=== PATIENT | male | born 1950 | race Caucasian/White ===

== ENCOUNTER 2017-05-08 16:01 | Inpatient (IN) | payer MEDICARE, MEDICAID ==
[~2017-05-08] VITALS: Ht 177.8 cm; Wt 108.9 kg
--- NOTE | 2017-05-08 16:34 | NUR ---
pt rec'd to er [facility] . friends called [id number] pt couldnt get up out of bathrrom very dizzy . this has happened befiore pt stated oriented x2 . stted taking beer with xanax 2 mg po and norco 325 cant remembe rhow many . very dirty . iv strted 18 left ac labs drawn sent to lab./ pt use to use herioin just drinks now pt fell aleeep on monitor or2 sats 84 ra n/c 3l AWAITING EVALUATION BY ER PROVIDER.
--- NOTE | 2017-05-08 16:39 | NUR ---
chest xray done
[2017-05-08] MEDS ORDERED: FENTANYL PF 100MCG/2ML AMPUL IV ONE (17:00)
[2017-05-08] MEDS ORDERED: MIDAZOLAM HCL 2 MG/2ML VIAL IV ONE ×2 (17:00→20:30)
[2017-05-08] MEDS ORDERED: MIDAZOLAM 50 MG/10 ML VIAL ONE (17:16)
[2017-05-08] MEDS ORDERED: FENTANYL PF 100MCG/2ML AMPUL ONE (17:16)
--- NOTE | 2017-05-08 17:41 | NUR ---
DR MEDELLIN ON THE PHONE WITH [facility]
--- NOTE | 2017-05-08 17:47 | NUR ---
CALLED [facility] FOR ABDUCTION PILLOW
[2017-05-08 18:02] LABS: BASOPHILS % (AUTO) 0.2 % (0.0-2.0); EOSINOPHILS # (AUTO) 0.2 /CMM (0.0-0.7); EOSINOPHILS % (AUTO) 1.3 % (0.0-6.0); HEMATOCRIT 40 % (39-51); HEMOGLOBIN 14.1 g/dL (13.5-17.5); LYMPHOCYTES % (AUTO) 7.3 % (20.0-44.0); MEAN CORPUSCULAR HEMOGLOBIN 33 PG (26.0-33.0); MEAN CORPUSCULAR HGB CONC 35 g/dl (31.0-36.0); MEAN CORPUSCULAR VOLUME 93 fL (80-96); MONOCYTES # (AUTO) 1.1 /CMM (0.1-1.30); MONOCYTES % (AUTO) 8.4 % (2.0-12.0); NEUTROPHILS # (AUTO) 11.2 /CMM (1.8-8.9); NEUTROPHILS % (AUTO) 82.8 % (43.0-81.0); PLATELET COUNT (AUTO) 111 /CMM (150-450); RDW COEFFICIENT OF VARIATION 12.4 (11.5-15.0); RED BLOOD CELL COUNT(AUTO) 4.33 MIL/uL (4.5-6.0); WHITE BLOOD COUNT (AUTO) 13.5 K/uL (4.3-11.0)
--- NOTE | 2017-05-08 18:08 | NUR ---
let hp xray done pt sleepy vss
--- NOTE | 2017-05-08 18:10 | NUR ---
PAGED EPIC FOR PANEL
[2017-05-08 18:14] LABS: CARBON DIOXIDE 31 mmol/L (21-32); CHLORIDE 105 mmol/L (98-107); CREATININE 0.9 mg/dL (0.6-1.3); GLUCOSE 110 mg/dL (74-106); POTASSIUM 3.6 mmol/L (3.5-5.1); SODIUM SERUM 139 mmol/L (136-145); UREA NITROGEN, BLOOD 22 mg/dL (7-18)
[2017-05-08 18:19] LABS: INR 0.88 (0.85-1.15)
[2017-05-08 18:20] LABS: ALANINE AMINOTRANSFERASE 75 U/L (12-78); ALBUMIN 3.4 g/dL (3.4-5.0); ALKALINE PHOSPHATASE 126 U/L (46-116); ASPARTATE AMINOTRANSFERASE 54 U/L (15-37); BILIRUBIN,DIRECT 0.2 mg/dL (0.0-0.2); BILIRUBIN,TOTAL 0.4 mg/dL (0.2-1.0)
--- NOTE | 2017-05-08 18:21 | NUR ---
abd pillow and long leg inmobilizer to left leg
[2017-05-08 18:22] LABS: TROPONIN I < 0.017 ng/mL (0.00-0.056)
[2017-05-08] MEDS ORDERED: ZOLPIDEM TARTRATE 5 MG TABLET PO PRN (18:30)
[2017-05-08] MEDS ORDERED: HYDROCODONE/APAP 5/325MG 1 EACH TABLET PO PRN (18:30)
[2017-05-08] MEDS ORDERED: ONDANSETRON HCL/PF 4 MG/2 ML VIAL IVP PRN (18:30)
[2017-05-08] MEDS ORDERED: Z GUARD REMEDY 2 OZ OINT TP PRN (18:30)
[2017-05-08] MEDS ORDERED: MAG HYDROX/AL HYDROX/SIMETH 30 ML UDC PO PRN (18:30)
[2017-05-08] MEDS ORDERED: LORAZEPAM 1 MG TABLET PO PRN (18:30)
[2017-05-08] MEDS ORDERED: ACETAMINOPHEN 325 MG TABLET PO PRN (18:30)
[2017-05-08] MEDS ORDERED: MAGNESIUM HYDROXIDE 30 ML UDC PO PRN (18:30)
--- NOTE | 2017-05-08 18:49 | NUR ---
CALLED NURSE SUP FOR BED
--- NOTE | 2017-05-08 19:37 | NUR ---
REPORT CALLED TO M/S TRISHA ALBERT. WILL TRANSPORT PT TO ROOM 204-1.
[2017-05-08 19:43] LABS: BAND % (MANUAL) 3 % (0.0-5.0); EOSINOPHILS % (MANUAL) 1 % (0-4); LYMPHOCYTES % (MANUAL) 10 % (16-48); MONOCYTES % (MANUAL) 11 % (0-11.0); NEUTROPHILS % (MANUAL) 75 (42-76)
--- NOTE | 2017-05-08 20:00 | NUR ---
MS RN NOTES RECEIVED REPORT FROM ER NURSE ED.PATIENT WAS BROUGHT UP TO THE UNIT ON A GURNEY. SLEEPING, EASILY AROUSED WITH VERBAL STIMULI. ORIENTED X3 -4. ON 2 L OF O2 VIA NASAL CANNULA. NO APPARENT DISTRESS OR DISCOMFORT NOTED AT THIS TIME. DENIES PAIN. LEFT AC HL #18, PATENT AND INTACT, FLASHED WITH NS. PATIENT WITH ABDUCTOR PILLOW AND LLE IMMOBILIZER. PATIENT WAS MADE COMFORTABLE IN BED. BELONGINGS AND VALUABLES IN PLACE PER INITIAL LIST. SAFETY MEASURES IN PLACE: ID BAND ON, BED IN LOW LOCKED POSITION WITH SIDE RAILS UP x2, CALL LIGHT WITHIN EASY REACH. WILL CONTINUE TO MONITOR.
[2017-05-08] MEDS ORDERED: FENTANYL PF 100MCG/2ML AMPUL IV PRN (20:30)
[2017-05-08 23:00] VITALS: BP 122/68
[2017-05-09] MEDS: MORPHINE SULFATE INJ 2 MG/ML DISP.SYRIN IV PRN ×3 (04:43→12:37)
[2017-05-09 06:49] LABS: EOSINOPHILS # (AUTO) 0.1 /CMM (0.0-0.7); EOSINOPHILS % (AUTO) 0.8 % (0.0-6.0); HEMATOCRIT 36 % (39-51); HEMOGLOBIN 12.8 g/dL (13.5-17.5); LYMPHOCYTES % (AUTO) 7.4 % (20.0-44.0); MEAN CORPUSCULAR HEMOGLOBIN 33 PG (26.0-33.0); MEAN CORPUSCULAR HGB CONC 35 g/dl (31.0-36.0); MEAN CORPUSCULAR VOLUME 94 fL (80-96); MONOCYTES # (AUTO) 0.9 /CMM (0.1-1.30); NEUTROPHILS # (AUTO) 11.5 /CMM (1.8-8.9); NEUTROPHILS % (AUTO) 84.8 % (43.0-81.0); PLATELET COUNT (AUTO) 100 /CMM (150-450); RDW COEFFICIENT OF VARIATION 13.6 (11.5-15.0); RED BLOOD CELL COUNT(AUTO) 3.86 MIL/uL (4.5-6.0); WHITE BLOOD COUNT (AUTO) 13.6 K/uL (4.3-11.0)
[2017-05-09 07:15] LABS: CALCIUM, SERUM 8.7 mg/dL (8.5-10.1); CREATININE 0.7 mg/dL (0.6-1.3); MAGNESIUM 1.6 mg/dL (1.8-2.4); PHOSPHORUS 2.4 mg/dL (2.5-4.9); POTASSIUM 4.1 mmol/L (3.5-5.1)
--- NOTE | 2017-05-09 07:17 | NUR ---
MS RN CLOSING NOTES PATIENT AWAKE IN BED, ALERT ORIENTED X3 -4. ON 2 L OF O2 VIA NASAL CANNULA. NO APPARENT DISTRESS OR DISCOMFORT NOTED AT THIS TIME. DENIES PAIN. LEFT AC HL #18, PATENT AND INTACT. PATIENT WITH ABDUCTOR PILLOW AND LLE IMMOBILIZER. PATIENT KEPT CLEAN AND COMFORTABLE IN BED. ALL NEEDS ATTENDED. SAFETY MEASURES IN PLACE: ID BAND ON, BED IN LOW LOCKED POSITION WITH SIDE RAILS UP x2, CALL LIGHT WITHIN EASY REACH. WILL CONTINUE TO MONITOR.
[2017-05-09] MEDS ORDERED: OXYC80TA40 PO (07:27)
[2017-05-09] MEDS ORDERED: HYDR-548 PO (07:27)
[2017-05-09] MEDS ORDERED: CYCL10TA9 PO (07:27)
[2017-05-09] MEDS ORDERED: LISI10TA5 PO (07:27)
--- NOTE | 2017-05-09 07:45 | NUR ---
MS/RN Patient received Patient received from welder 2nd shift. All needs attended, remains with abduction pillow to prevent hip from further dislocating. Left foot warm to touch with full sensation. Call light within [facility], will continue to monitor and ensure safety.
[2017-05-09 08:00] VITALS: BP 129/50
[2017-05-09] MEDS ORDERED: GLIP5TAB13 PO (08:43)
[2017-05-09] MEDS ORDERED: TRAZ-147 PO (08:43)
[2017-05-09] MEDS ORDERED: ATOR20TA PO (08:43)
[2017-05-09] MEDS ORDERED: OXYC80TA PO (08:43)
[2017-05-09] MEDS ORDERED: TAMS0.4C34 PO (08:43)
[2017-05-09] MEDS ORDERED: METF500T4 PO (08:43)
[2017-05-09] MEDS ORDERED: PANT40TA4 PO (08:43)
[2017-05-09] MEDS ORDERED: ALPR2TAB7 PO (08:43)
--- NOTE | 2017-05-09 08:45 | NUR ---
MS/RN Pain medication Complaining of pain to left hip 11/04, medication administered as ordered. Will monitor effectiveness.
--- NOTE | 2017-05-09 10:14 | NUR ---
MS/RN S/B Dr Avalos Seen by Dr Avalos - labs ordered for tomorrow.
--- NOTE | 2017-05-09 11:58 | NUR ---
MS/RN Home medications Dr Avalos contacted to reconcile home medications.
--- NOTE | 2017-05-09 12:22 | NUR ---
Social service consult requested by Dr. Resendiz for readmission score of 11 and pt. from sober living. SW referred pt. to registered nurse hh case manager Odilia Pierre for placement.
[2017-05-09] MEDS: Magnesium 1GM/D5W 100ML PREMIX 100 ML IV SCH ×2 (12:45→13:45)
--- NOTE | 2017-05-09 13:07 | NUR ---
MS/RN Refused magnesium Patient refusing magnesium replacement, stated that if he can't get his home medication then he doesn't want anything else. Will inform MD.
--- NOTE | 2017-05-09 15:36 | NUR ---
MS/RN S/B Ortho Seen by ortho - patient remains non compliant, stable from ortho stand point. Follow up with Dr Nance at [facility].
[2017-05-09 16:00] VITALS: BP 125/74
[2017-05-09] MEDS ORDERED: HYDROMORPHONE INJ 0.5 MG/0.5 ML SYRINGE IV PRN (16:30)
[2017-05-09] MEDS ORDERED: K PHOS NEUTRAL 250 MG TABLET PO ONE (18:00)
--- NOTE | 2017-05-09 18:23 | NUR ---
MS/RN End note Patient refusing all oral medications until Dr Avalos has entered home medications, patient continues to state that he is in pain and needs his regular medications. Patient also appears to be withdrawing from alcohol. Hip precautions reinforced, stated that he was aware. Safety measures in place, call light within reach, will continue to monitor and endorse to screener operator.
--- NOTE | 2017-05-09 19:15 | NUR ---
RN NOTES RECEIVED PT OUT OF BED, WALKING WITH FWW, VERY UPSET AND AGITATED BECAUSE HIS MEDICATIONS WERE NOT ORDERED YET BY THE DOCTOR. THE PT EVEN THROW THE FWW TO HIS FRUSTRATION. SPOKE TO THE PT AND CALM HIM DOWN, TOLD HIM WILL CALL THE DOCTOR RIGHT NOW TO GET THE ORDER. ASSISTED PT BACK TO BED, AND WILL UPDATE WITH HIS MEDICATIONS.
[2017-05-09 20:00] VITALS: BP 137/72
[2017-05-09] MEDS ORDERED: LORAZEPAM 1 MG TABLET PO PRN (21:00)
[2017-05-09] MEDS ORDERED: OXYCODONE HCL 80 MG PO SCH (21:00)
[2017-05-09] MEDS: ALPRAZOLAM 1 MG TABLET PO SCH (21:27)
[2017-05-09] MEDS ORDERED: OXYCODONE HCL 80 MG PO ONE (21:51)
[2017-05-09] MEDS ORDERED: TAMSULOSIN 0.4 MG CAP.SR.24H PO SCH (22:00)
[2017-05-09] MEDS ORDERED: TRAZODONE 50 MG TABLET PO SCH (22:00)
[2017-05-09] MEDS ORDERED: TEMAZEPAM 15 MG CAPSULE PO PRN (22:00)
--- NOTE | 2017-05-09 22:00 | NUR ---
RN NOTES TRAZADONE 400MG PUT ON HOLD BECAUSE PT IS SO SLEEPY WITH XANAX AND OXYCODONE. WILL CONTINUE TO MONITOR PT.
--- NOTE | 2017-05-09 22:00 | NUR ---
RN NOTES FLOMAX 0.4 MG TAB TO BE GIVEN IN AM, PER PT HE'S TAKING IT IN THE MORNING.
[2017-05-10 02:00] VITALS: BP 137/72
[2017-05-10 07:00] LABS: CALCIUM, SERUM 9.1 mg/dL (8.5-10.1); CREATININE 0.7 mg/dL (0.6-1.3); MAGNESIUM 1.6 mg/dL (1.8-2.4); POTASSIUM 4.4 mmol/L (3.5-5.1)
[2017-05-10] MEDS ORDERED: PANTOPRAZOLE 40 MG TABLET.DR PO SCH (07:30)
--- NOTE | 2017-05-10 07:35 | NUR ---
RN NOTES PT REFUSING FOR ABDUCTOR PILLOW ON WHILE IN BED AND CAN WALK WITH OUT FWW WITHOUT PAIN. VERBALIZING WANTING TO BE DISCHARGE HOME. NO SIGNIFICANT CHANGE IN CONDITION NOTED. PAIN CONTROLLED. ENDORSED TO MORNING RN FOR CONTINUITY OF CARE.
--- NOTE | 2017-05-10 07:45 | NUR ---
MS/RN Patient received Patient received from retail shift supervisor. Unhappy about care received by MD, stating that he had no right to withhold his medications from him. Expressed that he would be leaving today, and would arrange his own rehab. Safety measures in placed, attempted to reinforce hip precautions, but refusing to listen. Will continue to monitor and ensure safety.
[2017-05-10 08:00] VITALS: BP 127/88
[2017-05-10] MEDS: CYCLOBENZAPRINE 10 MG TABLET PO SCH ×2 (08:17→12:11)
[2017-05-10 08:18] VITALS: BP 127/88
[2017-05-10] MEDS: oxyCODONE HCL SR 40MG TAB.SR.12H PO SCH ×2 (08:56→12:12)
[2017-05-10] MEDS ORDERED: glipiZIDE 5 MG TABLET PO SCH (09:00)
[2017-05-10] MEDS: ALPRAZOLAM 1 MG TABLET PO SCH ×2 (09:00→12:12)
[2017-05-10] MEDS ORDERED: METFORMIN 500 MG TABLET PO SCH (09:00)
[2017-05-10] MEDS ORDERED: LISINOPRIL (10MG) 10 MG TABLET PO SCH (09:00)
--- NOTE | 2017-05-10 09:00 | NUR ---
MS/RN Medications All medications administered as ordered, but patient refusing xanax.
--- NOTE | 2017-05-10 09:10 | NUR ---
MS/RN Heplock Heplock pulled out, refusing reinsertion.
[2017-05-10] MEDS: Magnesium 1GM/D5W 100ML PREMIX 100 ML IV SCH ×2 (11:12→12:12)
--- NOTE | 2017-05-10 13:44 | NUR ---
MS/sales service route manager review Seen by case management coordinator - patient again stating wish to be discharged to home today and not to rehab. Stated that he has all equipment needed at home from previous surgery.
--- NOTE | 2017-05-10 16:00 | NUR ---
MS/RN S/B Michael Aabd Seen by Michael Abad - patient to be discharged to home today and follow up with ortho. No prescriptions needed.
--- NOTE | 2017-05-10 17:05 | NUR ---
MS/oracle application architect Patient discharged to home in stable condition. All personal belongings signed for on personal property list. Education provided to patient regarding the importance of following up with ortho MD at , also concerning hip precautions, patient stated understanding of both. Escorted to main lobby by INFORMATION SECURITY, son providing transport. Both heplock and name bands already removed.
[2017-05-10] MEDS ORDERED: ATORVASTATIN 10 MG TABLET PO SCH (22:00)
== END 2017-05-10 17:14 | disposition home or self-care (01) | DRG 537 ==
LOC: ER 16:03 → MEDSG2 19:39
PROVIDERS: ADMIT Internal Medicine; ATTEND Internal Medicine
PROC: 0SSBXZZ Reposition Left Hip Joint, External Approach (ICD-10-PCS; principal; 2017-05-08)
DX: S73.005A Unspecified dislocation of left hip, initial encounter (principal); R65.10 Systemic inflammatory response syndrome (SIRS) of non-infectious origin without acute organ dysfunction; J44.9 Chronic obstructive pulmonary disease, unspecified; E83.42 Hypomagnesemia; E11.9 Type 2 diabetes mellitus without complications; I10 Essential (primary) hypertension; W18.30XA Fall on same level, unspecified, initial encounter; Y92.009 Unspecified place in unspecified non-institutional (private) residence as the place of occurrence of the external cause; Y92.003 Bedroom of unspecified non-institutional (private) residence as the place of occurrence of the external cause; F10.10 Alcohol abuse, uncomplicated; Y90.9 Presence of alcohol in blood, level not specified; F41.9 Anxiety disorder, unspecified; F32.9 Major depressive disorder, single episode, unspecified; E66.9 Obesity, unspecified; Z68.34 Body mass index [BMI] 34.0-34.9, adult; Z79.4 Long term (current) use of insulin; Z79.899 Other long term (current) drug therapy; F17.200 Nicotine dependence, unspecified, uncomplicated
CPT/HCPCS: 36415; 71045-TC; 72170-TC; 73502; 80048-TC; 80076-TC; 83735-TC; 84100-TC; 84484-TC; 85025-TC; 85730-TC; 87081-TC; A4606; J2250; J2270; J3010; Z7610

== ENCOUNTER 2020-06-01 12:16 | Inpatient (IN) | payer MEDICARE, OTHER ==
[~2020-06-01] VITALS: Ht 177.8 cm; Wt 85.7 kg
[~2020-06-01 12:16] MED LIST: ALPR2TAB7 PO; ATOR20TA PO; CYCL10TA9 PO; GLIP5TAB13 PO; HYDR-4354 PO; LISI10TA29 PO; METF-440 PO; OXYC80TA PO; PANT40TA49 PO; TAMS0.4C34 PO; TRAZ-257 PO
--- NOTE | 2020-06-01 12:16 | NUR ---
PT [id number] GLF LEFT LEG "GIVES IN" & FELL PER EMS REPORT, -KO. PT IS AAOX4, NOT IN RESPIRATORY DISTRESS, HOOKED TO STEREO COMPILER, KEPT RESTED AND COMFORTABLE. WILL CONTINUE TO MONITOR.
--- NOTE | 2020-06-01 12:27 | NUR ---
SEEN AND EXAMINED BY .
[2020-06-01] MEDS ORDERED: ONDANSETRON HCL/PF 4 MG/2 ML VIAL IVP ONE (12:30)
[2020-06-01] MEDS ORDERED: MORPHINE SULFATE INJ 2 MG/ML DISP.SYRIN IV ONE (12:30)
[2020-06-01] MEDS ORDERED: MORPHINE SULFATE INJ 4 MG/ML DISP.SYRIN ONE (12:33)
[2020-06-01] MEDS ORDERED: ONDANSETRON HCL/PF 4 MG/2 ML VIAL ONE (12:33)
--- NOTE | 2020-06-01 12:35 | NUR ---
IV LINE ESTABLISHED BLOOD DRAWN AND SENT TO LAB.
[2020-06-01 12:47] LABS: BASOPHILS # (AUTO) 0.1 /CMM (0.0-0.2); BASOPHILS % (AUTO) 0.8 % (0.0-2.0); EOSINOPHILS % (AUTO) 3.6 % (0.0-6.0); HEMATOCRIT 40 % (39-51); HEMOGLOBIN 13.7 g/dL (13.5-17.5); LYMPHOCYTES # (AUTO) 1.6 /CMM (0.8-4.8); LYMPHOCYTES % (AUTO) 23.2 % (20.0-44.0); MEAN CORPUSCULAR HGB CONC 34 g/dl (31.0-36.0); MEAN CORPUSCULAR VOLUME 94 fL (80-96); MONOCYTES # (AUTO) 0.6 /CMM (0.1-1.30); MONOCYTES % (AUTO) 8.7 % (2.0-12.0); NEUTROPHILS # (AUTO) 4.5 /CMM (1.8-8.9); NEUTROPHILS % (AUTO) 63.7 % (43.0-81.0); PLATELET COUNT (AUTO) 84 /CMM (150-450); RED BLOOD CELL COUNT(AUTO) 4.28 MIL/uL (4.5-6.0); WHITE BLOOD COUNT (AUTO) 7.1 K/uL (4.3-11.0)
[2020-06-01 13:02] LABS: CALCIUM, SERUM 8.8 mg/dL (8.5-10.1); CREATININE 1.1 mg/dL (0.6-1.3); POTASSIUM 4.3 mmol/L (3.5-5.1)
--- NOTE | 2020-06-01 13:13 | NUR ---
MANAGER PRODUCT MANAGEMENT AT BEDSIDE FOR XRAY.
[2020-06-01] MEDS ORDERED: FENTANYL PF 100MCG/2ML AMPUL ONE (13:29)
[2020-06-01] MEDS ORDERED: MIDAZOLAM 50 MG/10 ML VIAL ONE (13:30)
[2020-06-01] MEDS ORDERED: FENTANYL PF 100MCG/2ML AMPUL IV ONE (13:30)
[2020-06-01] MEDS ORDERED: INSULIN REGULAR, HUMAN 100 UNIT/ML 10 ML VIAL ONE (13:30)
[2020-06-01] MEDS ORDERED: MIDAZOLAM HCL 2 MG/2ML VIAL IV ONE (13:30)
[2020-06-01] MEDS ORDERED: INSULIN REGULAR, HUMAN 100 UNIT/ML 10 ML VIAL SQ ONE (13:30)
--- NOTE | 2020-06-01 13:48 | NUR ---
DANCE ARTIST AT BEDSIDE FOR HIP XRAY S/P HIP REDUCTION.
--- NOTE | 2020-06-01 14:01 | NUR ---
[facility] PAGED. AWAITING HOSPITALIST CALL BACK.
--- NOTE | 2020-06-01 14:35 | NUR ---
CALLED [facility].
--- NOTE | 2020-06-01 14:36 | NUR ---
NURSING ASSISTANT BOYS TRACK COACH CALLED FOR A M/S BED.
--- NOTE | 2020-06-01 14:48 | NUR ---
GOT BED 308-1
[2020-06-01] MEDS ORDERED: ACETAMINOPHEN 325 MG TABLET PO PRN (15:00)
[2020-06-01] MEDS ORDERED: HYDROCODONE/APAP 10/325MG TABLET PO PRN (15:00)
[2020-06-01] MEDS ORDERED: HYDROCODONE/APAP 5/325MG TABLET PO PRN (15:00)
[2020-06-01] MEDS ORDERED: ONDANSETRON HCL/PF 4 MG/2 ML VIAL IVP PRN (15:00)
[2020-06-01] MEDS ORDERED: MAG HYDROX/AL HYDROX/SIMETH 30 ML UDC PO PRN (15:00)
[2020-06-01] MEDS ORDERED: MAGNESIUM HYDROXIDE 30 ML UDC PO PRN (15:00)
[2020-06-01] MEDS ORDERED: Z GUARD REMEDY 2 OZ OINT TP PRN (15:00)
[2020-06-01] MEDS ORDERED: DEXTROSE 50%-WATER 50 ML DISP.SYRIN IV PRN (15:00)
[2020-06-01] MEDS ORDERED: PROPOFOL 20 ML IV ONE (15:44)
[2020-06-01 15:57] LABS: EOSINOPHILS % (MANUAL) 2 % (0-4); LYMPHOCYTES % (MANUAL) 22 % (16-48); MONOCYTES % (MANUAL) 7 % (0-11.0); NEUTROPHILS % (MANUAL) 69 (42-76)
[2020-06-01] MEDS ORDERED: PROPOFOL 200 MG/20 ML VIAL IV ONE (16:00)
--- NOTE | 2020-06-01 16:00 | NUR ---
REPORT GIVEN TO TRISHA MILLIGAN FOR RAUL.
[2020-06-01] MEDS: MORPHINE SULFATE INJ 2 MG/ML DISP.SYRIN IV PRN (16:47)
[2020-06-01] MEDS: ALPRAZOLAM 1 MG TABLET PO SCH (17:13)
[2020-06-01] MEDS: CYCLOBENZAPRINE 10 MG TABLET PO SCH (17:13)
[2020-06-01] MEDS: BLOOD SUGAR DIAGNOSTIC 1 EACH STRIP VI SCH ×2 (18:28→22:18)
[2020-06-01] MEDS: INSULIN REGULAR, HUMAN 100 UNIT/ML 3 ML VIAL SQ PRN (18:36)
[2020-06-01 20:00] VITALS: BP 169/117
[2020-06-01] MEDS: TAMSULOSIN 0.4 MG CAP.SR.24H PO SCH ×2 (22:00→22:28)
[2020-06-01] MEDS: TRAZODONE 50 MG TABLET PO SCH (22:00)
[2020-06-01] MEDS: ATORVASTATIN 10 MG TABLET PO SCH ×2 (22:00→22:29)
[2020-06-01] MEDS: *INSULIN REGULAR(HUMULIN R)HUM 100 UNIT/ML VIAL SQ PRN (22:28)
[2020-06-01] MEDS: oxyCODONE HCL SR 20MG TAB.SR.12H PO SCH (22:29)
--- NOTE | 2020-06-01 22:29 | NUR ---
oxcontin held pt is arousavble to touch but falling asleep mid conversations. rr is 14. will cont to monito.r
[2020-06-02] MEDS: oxyCODONE HCL SR 20MG TAB.SR.12H PO SCH ×3 (05:00→21:00)
--- NOTE | 2020-06-02 05:15 | NUR ---
held oxcontin again this am held pt is arousable to touch and voice but still exhibits some lethargy. pt groans when moving but when still/still not mvoing, in no apparent distress. pt continues to reposition self. will cont to monitor.
--- NOTE | 2020-06-02 06:14 | NUR ---
pt refused am accucheck. patient refused am labs by shrimp pond laborer. pt upset, states, "why wont you guys fix my hip. you havent done a goddamn thing.All you want is blood this and blood that. fix my hip god damnit!"
[2020-06-02] MEDS: MORPHINE SULFATE INJ 2 MG/ML DISP.SYRIN IV PRN (06:22)
--- NOTE | 2020-06-02 06:50 | NUR ---
RN CLOSING NOTE PT IN BED NO ACUTE DISTRESS NOTED. PT SLEPT 8HRS LAST NIGHT. NARCOTIC MEDICATION HELD D/T PT APPEARING TO FALL ASLEEP DURING CONVERSATIONS. PT STILL COMPLAINING OF SEVERE PAIN TO LEFT HIP AND HIP IS VISIBLY OUT OF ALIGNMENT. PT REFUSED 2200 MEDICATIONS. PT MOVING INDEPENDENTLY IN BED FROM SIDE TO SIDE. ATTITUDE IS ANGRY AND NON COMPLIANT DURING INTERACTION WHILE AWAKE. GIVEN ONE DOSE OF MORPHINE 2MG AROUND 6PM. SAFETY MEASURE IN PLACE, BED DOWN LOCKED SRX3 CALL LIGHT IN REACH. WILL ENDORSE TO ONCOMING SHIFT.
[2020-06-02] MEDS: BLOOD SUGAR DIAGNOSTIC 1 EACH STRIP VI SCH ×4 (07:21→21:41)
[2020-06-02] MEDS: PANTOPRAZOLE 40 MG TABLET.DR PO SCH (07:21)
--- NOTE | 2020-06-02 07:35 | NUR ---
RN OPENING NOTE PT IS RESTING BED. AROUSES TO LIGHT TOUCH. A/O X3 AND ABLE TO COMMUNICATE NEEDS TO NURSES. NO CURRENT COMPLAINT OF PAIN. NO NAUSEA. CURRENTLY ON RA. NO SOB OR RESPIRATORY DISTRESS PRESENT. V/S STABLE. CURRENTLY ON BEDREST. L HIP DISLOCATION PRESENT. HL PRESENT ON R FA, 22G AND FLUSHES WELL. SAFETY MEASURES IN PLACE. SIDE RAILS RAISED, BED LOWERED, CALL LIGHT WITHIN REACH. WILL CONTINUE TO MONITOR.
[2020-06-02] MEDS: CYCLOBENZAPRINE 10 MG TABLET PO SCH ×3 (09:00→17:00)
[2020-06-02] MEDS: ALPRAZOLAM 1 MG TABLET PO SCH ×3 (09:00→17:04)
[2020-06-02] MEDS: LISINOPRIL (10MG) 10 MG TABLET PO SCH (09:00)
[2020-06-02] MEDS: HYDROMORPHONE INJ 2 MG/ML DISP.SYRIN IV PRN ×3 (09:08→15:25)
[2020-06-02 09:25] LABS: BASOPHILS % (AUTO) 0.6 % (0.0-2.0); HEMATOCRIT 43 % (39-51); HEMOGLOBIN 14.5 g/dL (13.5-17.5); LYMPHOCYTES # (AUTO) 1.6 /CMM (0.8-4.8); LYMPHOCYTES % (AUTO) 25.5 % (20.0-44.0); MEAN CORPUSCULAR HGB CONC 34 g/dl (31.0-36.0); MEAN CORPUSCULAR VOLUME 94 fL (80-96); MONOCYTES # (AUTO) 0.5 /CMM (0.1-1.30); MONOCYTES % (AUTO) 8.4 % (2.0-12.0); NEUTROPHILS # (AUTO) 3.9 /CMM (1.8-8.9); NEUTROPHILS % (AUTO) 62.5 % (43.0-81.0); PLATELET COUNT (AUTO) 82 /CMM (150-450); RED BLOOD CELL COUNT(AUTO) 4.54 MIL/uL (4.5-6.0); WHITE BLOOD COUNT (AUTO) 6.3 K/uL (4.3-11.0)
[2020-06-02 09:26] VITALS: BP 148/90
[2020-06-02 09:51] LABS: CALCIUM, SERUM 8.9 mg/dL (8.5-10.1); CREATININE 0.7 mg/dL (0.6-1.3); MAGNESIUM 1.8 mg/dL (1.8-2.4); PHOSPHORUS 3.2 mg/dL (2.5-4.9); POTASSIUM 4.2 mmol/L (3.5-5.1)
[2020-06-02] MEDS ORDERED: DESFLURANE 240 ML BOTTLE IH ONE (11:36)
[2020-06-02] MEDS ORDERED: SEVOFLURANE 250 ML BOTTLE IH ONE (12:10)
[2020-06-02] MEDS ORDERED: SUCCINYLCHOLINE CHLORIDE 20 MG/ML VIAL ONE (13:15)
[2020-06-02] MEDS ORDERED: ANESTHESIA TRAY IN PYXIS 1 EA TRAY MC ONE (13:21)
--- NOTE | 2020-06-02 13:50 | NUR ---
SS CONSULT FOLLOW UP: Per RN, Vinny hanley is in surgery and unable to meet for an assessment at this time. RN will follow up with SS when the patient is alert and able to complete an assessment.
[2020-06-02] MEDS ORDERED: FENTANYL PF 100MCG/2ML AMPUL ONE (14:01)
[2020-06-02] MEDS ORDERED: HYDROMORPHONE 1 MG/1 ML DISP.SYRIN ONE (14:38)
[2020-06-02 15:00] VITALS: BP 166/83
--- NOTE | 2020-06-02 15:01 | NUR ---
RN POST OP NOTE CLOSED REDUCTION OF LEFT HIP FRACTURE UNSUCCESSFUL. RESUME PRE OP ORDERS INDICATED. ADVANCE DIET TOLERATED. BP 166/83, O2 SAT 99% ON 2L NC, 99 OK, 98.6F TEMPERATURE. WILL CONTINUE TO MONITOR.
[2020-06-02] MEDS: INSULIN REGULAR, HUMAN 100 UNIT/ML 3 ML VIAL SQ PRN (17:36)
--- NOTE | 2020-06-02 18:00 | NUR ---
FINAL ASSEMBLY AND PACKING SUPERVISOR NOTE HELD FLEXERIL DUE TO PT CONDITION. AROUSABLE ONLY TO DEEP PAIN.
--- NOTE | 2020-06-02 18:08 | NUR ---
RN NOTE PT HAS HIP OPERATIONS DONE AT [facility]. UNABLE TO OBTAIN NAME OF ORIGINAL SURGEON. WILL ENDORSE TO NIGHT NURSE.
--- NOTE | 2020-06-02 18:11 | NUR ---
RN CLOSING NOTE PT IS RESTING IN BED AWAKE. A/O X 3 AND ABLE TO COMMUNICATE NEEDS TO NURSES. NO COMPLAINT OF PAIN. NO NAUSEA. CURRENTLY ON RA. NO SOB OR RESPIRATORY DISTRESS PRESENT. CURRENTLY ON BEDREST DUE TO HIP DISLOCATION. ABLE TO USE URINAL/BEDPAN. SKIN IS INTACT. HL PRESENT ON R AC, 18 G AND FLUSHES WELL. ROUTINE MEDS GIVEN. SAFETY MEASURES IN PLACE. SIDE RAILS UP. BED LOWERED. CALL LIGHT WITHIN REACH. REPORT TO BE GIVEN TO NIGHT NURSE FOR RAUL.
[2020-06-02 20:00] VITALS: BP 107/68
[2020-06-02] MEDS: TRAZODONE 50 MG TABLET PO SCH (21:41)
[2020-06-02] MEDS: TAMSULOSIN 0.4 MG CAP.SR.24H PO SCH (21:41)
[2020-06-02] MEDS: ATORVASTATIN 10 MG TABLET PO SCH (21:41)
--- NOTE | 2020-06-02 21:42 | NUR ---
PATIENT REFUSED SCHEDULED MEDICATIONS. STATES, "I DON'T WANT ANY OF THAT STUFF, I WANT THEM TO FIX MY [place] HIP. STATES A DR. NATHAN DID HIS HIP SURGERY AT [facility]. PATIENT REPORTS PAIN TO LEFT HIP 10/10 BUT DURING CONVERSATION PATIENT APPEARED TO FALL BACK ASLEEP WITH EYES CLOSED AND SOFT SNORING. RR IS 18 PT AROUSABLE TO VOICE BUT SOMEWHAT LETHARGIC WILL HOLD OFF ON ADMINISTERING NARCOTICS UNTIL PATIENT MORE ALERT WILL CONT TO MONITOR.
[2020-06-03] MEDS: HYDROMORPHONE INJ 2 MG/ML DISP.SYRIN IV PRN ×4 (01:41→17:27)
[2020-06-03] MEDS: oxyCODONE HCL SR 20MG TAB.SR.12H PO SCH ×3 (05:00→22:02)
--- NOTE | 2020-06-03 06:30 | NUR ---
patient refused am lab draw. per pathology lab technician.
[2020-06-03] MEDS: INSULIN REGULAR, HUMAN 100 UNIT/ML 3 ML VIAL SQ PRN ×3 (07:12→17:31)
[2020-06-03] MEDS: BLOOD SUGAR DIAGNOSTIC 1 EACH STRIP VI SCH ×4 (07:18→22:04)
--- NOTE | 2020-06-03 07:41 | NUR ---
MS/RN OPENING NOTES RECEIVED PATIENT ON BED AWAKE ALERT AND ORIENTED X3. PATIENT IS ON ROOM AIR SATURATING WELL. PATIENT IN NO APPARENT RESPIRATORY DISTRESS NOTED. NO COMPLAINED OF PAIN NOTED AT THIS TIME. WILL CONTINUE TO MONITOR.
[2020-06-03 08:00] VITALS: BP 90/62
[2020-06-03] MEDS: CYCLOBENZAPRINE 10 MG TABLET PO SCH ×3 (08:14→17:27)
[2020-06-03] MEDS: ALPRAZOLAM 1 MG TABLET PO SCH ×3 (08:14→17:00)
[2020-06-03] MEDS: PANTOPRAZOLE 40 MG TABLET.DR PO SCH (08:14)
[2020-06-03] MEDS: LISINOPRIL (10MG) 10 MG TABLET PO SCH (09:00)
[2020-06-03 11:04] LABS: BASOPHILS # (AUTO) 0.1 /CMM (0.0-0.2); BASOPHILS % (AUTO) 0.3 % (0.0-2.0); EOSINOPHILS % (AUTO) 0.5 % (0.0-6.0); HEMATOCRIT 41 % (39-51); LYMPHOCYTES # (AUTO) 1.8 /CMM (0.8-4.8); LYMPHOCYTES % (AUTO) 10.7 % (20.0-44.0); MEAN CORPUSCULAR HGB CONC 34 g/dl (31.0-36.0); MEAN CORPUSCULAR VOLUME 93 fL (80-96); MONOCYTES # (AUTO) 1.4 /CMM (0.1-1.30); MONOCYTES % (AUTO) 8.2 % (2.0-12.0); NEUTROPHILS # (AUTO) 13.6 /CMM (1.8-8.9); NEUTROPHILS % (AUTO) 80.3 % (43.0-81.0); PLATELET COUNT (AUTO) 94 /CMM (150-450); WHITE BLOOD COUNT (AUTO) 16.9 K/uL (4.3-11.0)
[2020-06-03 11:44] LABS: ALBUMIN 2.5 g/dL (3.4-5.0); BILIRUBIN,TOTAL 0.7 mg/dL (0.2-1.0); CALCIUM, SERUM 8.9 mg/dL (8.5-10.1); CREATININE 0.9 mg/dL (0.6-1.3); PHOSPHORUS 3.6 mg/dL (2.5-4.9)
[2020-06-03 12:10] LABS: POTASSIUM 4.2 mmol/L (3.5-5.1)
[2020-06-03 12:29] LABS: BAND % (MANUAL) 3 % (0.0-5.0); EOSINOPHILS % (MANUAL) 1 % (0-4); LYMPHOCYTES % (MANUAL) 9 % (16-48); MONOCYTES % (MANUAL) 7 % (0-11.0); NEUTROPHILS % (MANUAL) 80 (42-76)
[2020-06-03 13:26] LABS: CHOLESTEROL 129 mg/dL (<200); HDL CHOLESTEROL 53 mg/dL (40-60); LDL 65 mg/dL (0-99); TRIGLYCERIDES 48 mg/dL (30-150)
[2020-06-03 16:00] VITALS: BP 102/69
--- NOTE | 2020-06-03 18:30 | NUR ---
MS/RN CLOSING NOTES PATIENT IS ON BED. ALERT AND ORIENTED X 3. PATIENT IS ON ROOM AIR SATURATION 93%. PATIENT IN NO APPARENT RESPIRATORY DISTRESS NOTED. NO COMPLAINED OF PAIN NOTED AT THIS TIME. SEEN AND EXAMINED BY MD WITH ORDERS MADE AND CARRIED OUT. ALL DUE MEDICATIONS WAS GIVEN. SAFETY PRECAUTIONS WAS IN PLACED. BED IN LOWEST POSITION AND LOCKED. WILL ENDORSED TO EXOTIC DANCER FOR RAUL.
[2020-06-03 20:00] VITALS: BP 125/74
--- NOTE | 2020-06-03 20:08 | NUR ---
RN NOTE PATIENT IN BED RESTING, LETHARGIC. EASILY AROUSED. NO SOB OR ANY RESPIRATORY DISTRESS. ON ROOM AIR, O2 SAT WNL. DENIES ANY PAIN AT THIS TIME. WITH RIGHT AC #18 PATENT AND INTACT. ALL NEEDS ANTICIPATED. SAFETY MEASURES IN PLACE. BED LOCKED AND IN LOWEST POSITION. CALL LIGHT WITHIN REACH. WILL CONTINUE TO MONITOR.
[2020-06-03] MEDS: ATORVASTATIN 10 MG TABLET PO SCH (22:02)
[2020-06-03] MEDS: TAMSULOSIN 0.4 MG CAP.SR.24H PO SCH (22:02)
[2020-06-03] MEDS: TRAZODONE 50 MG TABLET PO SCH (22:04)
[2020-06-03] MEDS: *INSULIN REGULAR(HUMULIN R)HUM 100 UNIT/ML VIAL SQ PRN ×2 (22:09→22:13)
[2020-06-04] MEDS: oxyCODONE HCL SR 20MG TAB.SR.12H PO SCH ×3 (05:00→20:57)
[2020-06-04] MEDS: BLOOD SUGAR DIAGNOSTIC 1 EACH STRIP VI SCH ×4 (06:53→21:19)
[2020-06-04] MEDS: INSULIN REGULAR, HUMAN 100 UNIT/ML 3 ML VIAL SQ PRN ×3 (06:53→17:40)
--- NOTE | 2020-06-04 07:04 | NUR ---
RN NOTE PATIENT IN BED RESTING, LETHARGIC. EASILY AROUSED. NO SOB OR ANY RESPIRATORY DISTRESS. ON ROOM AIR, O2 SAT WNL. WITH RIGHT AC #18 PATENT AND INTACT. OFFERED AM MEDS AND ACCUCHECK X3, RISKS AND BENEFITS EXPLAINED, BUT STILL STRONGLY REFUSED AND ANGRILY SAID "NO". SAFETY MEASURES IN PLACE. BED LOCKED AND IN LOWEST POSITION. CALL LIGHT WITHIN REACH. WILL ENDORSE TO ONCOMING SHIFT.
--- NOTE | 2020-06-04 07:25 | NUR ---
MS RICO OPENING NOTES RECEIVED PATIENT IN BED, SLEEPING. ON ROOM AIR, TOLERATING WELL. NO SOB NOTED. IN NO APPARENT DISTRESS. IV ACCESS ON R AC #18 G, INTACT. SAFETY MEASURES MAINTAINED. BED IN LOWEST POSITION, BRAKES LOCKED. SIDE RAILS UP X2. CALL LIGHT WITHIN REACH. WILL CONTINUE PLAN OF CARE. Addendum: 06/04/20 at 0815 by HEYDI SUAREZ RN ENTERED BY ROBERT BLANCHARDN, RN
[2020-06-04 08:00] VITALS: BP 100/64
[2020-06-04] MEDS: LISINOPRIL (10MG) 10 MG TABLET PO SCH (09:00)
[2020-06-04] MEDS: PANTOPRAZOLE 40 MG TABLET.DR PO SCH (09:05)
[2020-06-04] MEDS: CYCLOBENZAPRINE 10 MG TABLET PO SCH ×3 (09:05→16:59)
[2020-06-04] MEDS: ALPRAZOLAM 1 MG TABLET PO SCH ×3 (09:05→16:59)
[2020-06-04 16:00] VITALS: BP 138/60
--- NOTE | 2020-06-04 18:18 | NUR ---
MS RN CLOSING NOTES PATIENT RESTING IN BED, LETHARGIC. ON ROOM AIR, TOLERATING WELL. NO SOB NOTED. NO S/S OF RESPIRATORY DISTRESS. IV ACCESS ON R AC #18 G, INTACT AND PATENT. ALL NEEDS HAVE BEEN MET. ROUTINE MEDS WERE GIVEN ORDERED. SAFETY MEASURES MAINTAINED. BED IN LOWEST POSITION, BRAKES LOCKED. SIDE RAILS UP X2. CALL LIGHT WITHIN REACH. WILL ENDORSE TO TELETYPEWRITER INSTALLER FOR CONTINUITY OF CARE.
--- NOTE | 2020-06-04 19:35 | NUR ---
RN opening notes Pt is resting in bed comfortably. Pt is alert and orientedX3, lethargic and easily arousable. Respiration is normal in room air. No SOB. No S/S of distress noted. IV site at RAc# 18 is clean, intact, flushes well and SL. Safety precautions is maintained. Bed at low position, brakes locked, side rails upX2, urinal at the bed side and call light is within reach. Will continue to monitor.
[2020-06-04 20:00] VITALS: BP 124/84
[2020-06-04] MEDS: TRAZODONE 50 MG TABLET PO SCH (21:02)
--- NOTE | 2020-06-04 21:02 | NUR ---
RN notes Pt refused desyrel 50 mg/8 tabs/po. Explained risks and benefits. Pt keep refusing. Will continue to monitor.
[2020-06-04] MEDS: TAMSULOSIN 0.4 MG CAP.SR.24H PO SCH (21:14)
[2020-06-04] MEDS: ATORVASTATIN 10 MG TABLET PO SCH (21:15)
[2020-06-04] MEDS: *INSULIN REGULAR(HUMULIN R)HUM 100 UNIT/ML VIAL SQ PRN (21:22)
[2020-06-05 04:38] VITALS: BP 137/92
[2020-06-05] MEDS: oxyCODONE HCL SR 20MG TAB.SR.12H PO SCH ×4 (04:38→23:01)
--- NOTE | 2020-06-05 04:45 | NUR ---
RN notes Pt's complaining of pain on L hip. Administered oxycontin 20 mg/4 tabs/po as ordered. BP 137/92 and pulse 81. Safety precautions is maintained. Will continue to monitor.
[2020-06-05] MEDS: BLOOD SUGAR DIAGNOSTIC 1 EACH STRIP VI SCH ×4 (06:31→22:22)
[2020-06-05] MEDS: INSULIN REGULAR, HUMAN 100 UNIT/ML 3 ML VIAL SQ PRN ×2 (06:32→17:31)
--- NOTE | 2020-06-05 06:53 | NUR ---
RN closing notes Pt is resting in bed comfortably. Pt is alert and orientedX3, lethargic and easily arousable. Respiration is normal in room air. No SOB. No S/S of distress noted. VS is stable. Afebrile. Routine meds were given as ordered. IV site at RAc# 18 is clean, intact, flushes well and SL. Kept Pt clean, dry and comfortable. All needs met and attended. Safety precautions is maintained. Bed at low position, brakes locked, side rails upX2, urinal at the bed side and call light is within reach. Will endorse to morning nurse for RAUL.
[2020-06-05] MEDS: PANTOPRAZOLE 40 MG TABLET.DR PO SCH ×2 (07:30→09:37)
--- NOTE | 2020-06-05 07:55 | NUR ---
ms rn received on bed, awake,alert, x2,lethargic and confused at times,came in w/ left hip dislocation,abdomen soft,no sob noted,patient is very sleepy,will monitor patient's condition.
[2020-06-05 08:00] VITALS: BP 129/77
[2020-06-05] MEDS: ALPRAZOLAM 1 MG TABLET PO SCH ×4 (09:00→17:27)
[2020-06-05] MEDS: LISINOPRIL (10MG) 10 MG TABLET PO SCH ×2 (09:00→09:38)
[2020-06-05] MEDS: CYCLOBENZAPRINE 10 MG TABLET PO SCH ×4 (09:00→17:27)
--- NOTE | 2020-06-05 09:00 | NUR ---
ms rn held meds at this time.patient is lethargic but easily arausable.
--- NOTE | 2020-06-05 11:00 | NUR ---
ms rn was seen by dr. polo but still hesitant to do sx.cn aware.
--- NOTE | 2020-06-05 13:30 | NUR ---
ms rn [id number] not give coverage, patient is not eating.
[2020-06-05 16:00] VITALS: BP 128/87
--- NOTE | 2020-06-05 19:35 | NUR ---
MS RN NOTES RECEIVED ON BED SLEEPING,BREATHING NON LABORED,AROUSABLE TO VERBAL STIMULI,SALINE LOCK RAC INTACT AND PATENT.CALL LIGHT IN REACH,WILL CONTINUE TO MONITOR FOR PAIN ON LEFT HIP DISLOCATION.
--- NOTE | 2020-06-05 21:33 | NUR ---
MS RICO NOTES DUE OXYCONTIN PO HELD,SOUND ASLEEP BUT AROUSABLE,WAS MEDICATED BY DAY NURSE WITH FLEXERIL AND XANAX AT 1700 Addendum: 06/05/20 at 2324 by ELICEO BRIONES RN DUE OXYCONTIN 80MG PO ADMINISTERED AT 2301 WHEN PATIENT ALREADY AWAKE,IN PAIN
[2020-06-05] MEDS: TAMSULOSIN 0.4 MG CAP.SR.24H PO SCH ×2 (22:00→23:02)
[2020-06-05] MEDS: ATORVASTATIN 10 MG TABLET PO SCH ×2 (22:00→23:01)
[2020-06-05] MEDS: TRAZODONE 50 MG TABLET PO SCH (22:00)
--- NOTE | 2020-06-05 22:00 | NUR ---
MS RN NOTES ACCU-CHECK BLOOD SUGAR CHECK 244,COVERED WITH HUMULIN R 4 UNITS PER SLIDING SCALE.
--- NOTE | 2020-06-05 22:00 | NUR ---
MS RN NOTES TRAZODONE DOSE HELD,JUST WOKE UP FROM OVERSEDATION AND WAS JUST MEDICATED WITH OXYCONTIN FOR PAIN
[2020-06-05] MEDS: *INSULIN REGULAR(HUMULIN R)HUM 100 UNIT/ML VIAL SQ PRN (22:25)
[2020-06-05 23:01] VITALS: BP 139/95
--- NOTE | 2020-06-05 23:01 | NUR ---
MS RN NOTES AWAKE THIS TIME MOANS IN PAIN,WITH FACIAL GRIMACE NOTED.DUE OXYCONTIN 80MG PO GIVE THIS TIME ALONG WITH OTHER MEDICATION DUE AT 2200,TAKE WITH APPLE SAUCE.
--- NOTE | 2020-06-05 23:20 | NUR ---
MS RN NOTES PATIENT REFUSED TO BE REPOSITIONED AT THE MOMENT.
--- NOTE | 2020-06-06 02:12 | NUR ---
MS RN NOTES AWAKE RESTLESS,TRYING TO GET OUT FROM BED,CLAIMED PAIN,MEDIVATED WITH NORCO 10/325MG,1 TAB PO ORDERED.
--- NOTE | 2020-06-06 03:30 | NUR ---
MS RN NOTES SLEEPING,NOT IN ANY FORM OF DISTRESS.
--- NOTE | 2020-06-06 05:30 | NUR ---
MS RN NOTES ACCU-CHECK BLOOD SUGAR CHECK 205,COVERED WITH HUMULIN R 6 UNITS PER AC SLIDING SCALE.
[2020-06-06] MEDS: oxyCODONE HCL SR 20MG TAB.SR.12H PO SCH ×2 (06:02→12:31)
--- NOTE | 2020-06-06 06:02 | NUR ---
MS RN NOTES AWAKE,DUE OXYCONTIN CR 80MG PO GIVEN THIS TIME,ASLEEP AT 0500.
[2020-06-06] MEDS: BLOOD SUGAR DIAGNOSTIC 1 EACH STRIP VI SCH ×4 (06:03→21:20)
[2020-06-06] MEDS: INSULIN REGULAR, HUMAN 100 UNIT/ML 3 ML VIAL SQ PRN ×3 (06:04→16:56)
--- NOTE | 2020-06-06 06:42 | NUR ---
MS RN NOTES CALM AND QUIET THIS TIME,BREATHING REGULAR,NOT IN ANY FORM OF DISTRESS.PAIN MANAGEMENT EFFECTIVE,DR GREWAL FOR SURGICAL INTERVENTION,AWAITING TO KNOW WHAT KIND OF PROSTHESIS DOES PATIENT HAVE.
--- NOTE | 2020-06-06 07:39 | NUR ---
MS RN OPENING NOTE PATIENT IS IN BED RESTING COMFORTABLY. PATIENT IS ON ROOM AIR TOLERATING WELL. TOLERATING WELL, NO SOB NOTED. PATIENT IS A LITTLE CONFUSED AT THE MOMENT. SAFETY PRECAUTIONS ARE ON. BED IN THE LOWEST POSITION, SIDE RAILS ARE UP, CALL LIGHT WITHIN REACH. WILL CONTINUE TO MONITOR CLOSELY THROUGHOUT THE SHIFT.
[2020-06-06 08:00] VITALS: BP 131/75
[2020-06-06] MEDS: PANTOPRAZOLE 40 MG TABLET.DR PO SCH (08:24)
[2020-06-06] MEDS: LISINOPRIL (10MG) 10 MG TABLET PO SCH (08:25)
[2020-06-06] MEDS: CYCLOBENZAPRINE 10 MG TABLET PO SCH ×3 (08:28→16:28)
[2020-06-06] MEDS: ALPRAZOLAM 1 MG TABLET PO SCH ×3 (08:28→16:28)
[2020-06-06 16:00] VITALS: BP 106/63
[2020-06-06 18:00] VITALS: BP 106/63
--- NOTE | 2020-06-06 18:46 | NUR ---
MS RN CLOSING NOTE PATIENT IS IN BED RESTING COMFORTABLY. PATIENT IS ON ROOM AIR TOLERATING WELL. TOLERATING WELL, NO SOB NOTED. PATIENT CAN BE CONFUSED AT TIMES. SAFETY PRECAUTIONS ARE ON. BED IN THE LOWEST POSITION, SIDE RAILS ARE UP, CALL LIGHT WITHIN REACH. ENDORSE PATIENT TO LEAF SIZE PICKER NURSE FOR RAUL.
[2020-06-06 20:00] VITALS: BP 103/64
--- NOTE | 2020-06-06 20:00 | NUR ---
RN NOTES RECEIVED PATIENT IN BED, ALERT AND ORIENTED X3, LETHARGIC, AROUSEABLE, SPO2 AT ROOM AIR 82%, PUT ON 2LPM VIA NC, SPO2 WENT UP TO 94%. USES URINAL TO VOID, LEFT HIP DISLOCATION, OPIOID DEPENDENT, ON OXYCONTIN ROUTINE. KEPT SAFE, WILL CONTINUE TO MONITOR.
[2020-06-06] MEDS: ATORVASTATIN 10 MG TABLET PO SCH (21:04)
[2020-06-06] MEDS: TAMSULOSIN 0.4 MG CAP.SR.24H PO SCH (21:04)
[2020-06-06] MEDS: oxyCODONE HCL SR 40MG TAB.SR.12H PO SCH (21:04)
[2020-06-06] MEDS: TRAZODONE 50 MG TABLET PO SCH (21:08)
[2020-06-06] MEDS: *INSULIN REGULAR(HUMULIN R)HUM 100 UNIT/ML VIAL SQ PRN (21:19)
[2020-06-07 00:57] LABS: BASOPHILS % (AUTO) 0.5 % (0.0-2.0); EOSINOPHILS % (AUTO) 2.2 % (0.0-6.0); HEMATOCRIT 39 % (39-51); HEMOGLOBIN 13.9 g/dL (13.5-17.5); LYMPHOCYTES # (AUTO) 1.9 /CMM (0.8-4.8); MEAN CORPUSCULAR HGB CONC 35 g/dl (31.0-36.0); MEAN CORPUSCULAR VOLUME 92 fL (80-96); MONOCYTES # (AUTO) 0.7 /CMM (0.1-1.30); MONOCYTES % (AUTO) 9.4 % (2.0-12.0); NEUTROPHILS # (AUTO) 5.1 /CMM (1.8-8.9); NEUTROPHILS % (AUTO) 63.9 % (43.0-81.0); PLATELET COUNT (AUTO) 104 /CMM (150-450); RED BLOOD CELL COUNT(AUTO) 4.28 MIL/uL (4.5-6.0); WHITE BLOOD COUNT (AUTO) 7.9 K/uL (4.3-11.0)
--- NOTE | 2020-06-07 02:32 | NUR ---
RN NOTES STAT CBC ORDERED, PLATELET IS 104, NOTIFIED OVERHEAD CRANE OPERATOR MELVA PERALTA OK TO GIVE.
[2020-06-07] MEDS: ENOXAPARIN SODIUM 40 MG/0.4 ML DISP.SYRIN SQ SCH (02:44)
[2020-06-07] MEDS: oxyCODONE HCL SR 40MG TAB.SR.12H PO SCH ×3 (04:16→21:06)
--- NOTE | 2020-06-07 04:32 | NUR ---
RN NOTES PERFORMED BLADDER SCAN, PATIENT HAS NO URINE OUTPUT SINCE START OF SHIFT, BVI 136 ML, BLADDER NOT DISTENDED, NO DISCOMFORT ON PALPATION. OFFERED FLUIDS WHILE AWAKE
--- NOTE | 2020-06-07 06:08 | NUR ---
RN NOTES ALERT AND ORIENTED X3, 3LPM VIA NC TO KEEP SPO2 > 93%, ON RA SPO2 88%, GENERALIZED WEAKNESS, LETHARGIC, AROUSEABLE BY VOICE AND TOUCH, RIGHT HIP DISLOCATION, OXYCONTIN SCHEDULED, NO OTHER PRN PAIN MEDICATION GIVEN. SCANT URINE OUTPUT, BLADDER SCAN PERFORMED, BVI 136 ML, NOTIFIED MEMBERSHIP SOLICITOR FABIAN, NO NEW ORDER. NO DISCOMFORT ON PALPATION, BLADDER NOT DISTENDED. SCD AND LOVENOX FOR VTE, LAST CBC 06/03/20, PER STAT CBC, PLATELET 104, OK TO GIVE LOVENOX PER MEMBERSHIP SOLICITOR FABIAN. HIP REDUCTION UNSUCCESSFUL, REFERRED TO DR. GREWAL FOR POSSIBLE SURGERY. MONITOR URINE OUTPUT
[2020-06-07] MEDS: INSULIN REGULAR, HUMAN 100 UNIT/ML 3 ML VIAL SQ PRN (06:46)
[2020-06-07] MEDS: BLOOD SUGAR DIAGNOSTIC 1 EACH STRIP VI SCH ×4 (06:47→22:22)
[2020-06-07 08:00] VITALS: BP 98/64
--- NOTE | 2020-06-07 08:00 | NUR ---
RN Opening note Received patient in bed, drowsiness but able to arouse voice or light pain stimuli. AO x 2-3 does no appears pain or distress. Skin is warm to touch, keep clean/dry, intact IV with SL. Respiratory even and unlabored with oxygen at 3LPM via n/c. Kept elevated HIB for ensure airway and aspiration precaution and lowering bed position for safety. Call light within reach, will continue to monitor.
[2020-06-07] MEDS: PANTOPRAZOLE 40 MG TABLET.DR PO SCH (08:09)
[2020-06-07] MEDS: CYCLOBENZAPRINE 10 MG TABLET PO SCH ×3 (08:09→16:39)
[2020-06-07] MEDS: ALPRAZOLAM 1 MG TABLET PO SCH ×4 (08:10→17:00)
[2020-06-07] MEDS: LISINOPRIL (10MG) 10 MG TABLET PO SCH (09:00)
[2020-06-07] MEDS: *INSULIN REGULAR(HUMULIN R)HUM 100 UNIT/ML VIAL SQ PRN ×3 (12:24→22:26)
[2020-06-07 16:05] VITALS: BP 103/51
--- NOTE | 2020-06-07 18:28 | NUR ---
RN Closing note Patient in bed, remains AO x 4. Respiratory even and unlabored with oxygen at 3LPM via NC. Skin is warm to touch, keep clean/dry. Patient had urinated 350 ml in urinal plus wet lily, no s/s of urinary retention observed. Keep elevated HOB for ensure airway and aspiration precaution, also lowest bed position for safety. Patient refused Xanax and PO pain medication. Patient Encouraged oral fluid intake as tolerated. Call light within reach, will endorse to table games shift manager.
--- NOTE | 2020-06-07 19:38 | NUR ---
RN NOTES Received patient in bed, AO x 2-3 does no appears pain or distress. Skin is warm to touch, keep clean/dry, intact IV with SL. Respiratory even and unlabored on room air. Kept elevated HIB for ensure airway and aspiration precaution and lowering bed position for safety. Call light within reach, will continue to monitor.
[2020-06-07 20:00] VITALS: BP 123/88
[2020-06-07] MEDS: ATORVASTATIN 10 MG TABLET PO SCH (21:06)
[2020-06-07] MEDS: TAMSULOSIN 0.4 MG CAP.SR.24H PO SCH (21:07)
[2020-06-07] MEDS: TRAZODONE 50 MG TABLET PO SCH (21:07)
[2020-06-08] MEDS: oxyCODONE HCL SR 40MG TAB.SR.12H PO SCH ×3 (05:00→21:00)
[2020-06-08] MEDS: BLOOD SUGAR DIAGNOSTIC 1 EACH STRIP VI SCH ×4 (07:03→22:00)
--- NOTE | 2020-06-08 07:06 | NUR ---
RN NOTES Patient in bed, remains AO x 4. Respiratory even and unlabored on room. Skin is warm to touch, keep clean/dry. Keep elevated HOB for ensure airway and aspiration precaution, also lowest bed position for safety. Patient refused Xanax and PO pain medication. Patient Encouraged oral fluid intake as tolerated. Call light within reach, will endorse to day shift.
[2020-06-08] MEDS: PANTOPRAZOLE 40 MG TABLET.DR PO SCH (07:30)
--- NOTE | 2020-06-08 07:48 | NUR ---
RN Opening note Received patient in bed, AO x 2-3, confuse, able to responds all stimuli. Skin is warm to touch, keep clean/dry, intact IV with SL. Respiratory even and unlabored on room air. Kept elevated HOB for ensure airway and aspiration precaution and lowering bed position for safety. Call light within reach, will continue to monitor.
[2020-06-08] MEDS: ALPRAZOLAM 1 MG TABLET PO SCH ×3 (07:53→17:00)
[2020-06-08 08:00] VITALS: BP 134/81
[2020-06-08] MEDS: CYCLOBENZAPRINE 10 MG TABLET PO SCH ×3 (09:00→17:00)
[2020-06-08] MEDS: ENOXAPARIN SODIUM 40 MG/0.4 ML DISP.SYRIN SQ SCH (09:00)
[2020-06-08] MEDS: LISINOPRIL (10MG) 10 MG TABLET PO SCH (09:00)
--- NOTE | 2020-06-08 12:59 | NUR ---
Patient has not done procedure/closed reduction left hip, contact Dr. Hwang but no response.
--- NOTE | 2020-06-08 13:07 | NUR ---
Received respose from Dr. Luther: Sx tomorrow, keep NPO after midnight, consent to closed vs. open reduction left hip with possible revision. Noted and carry out.
[2020-06-08 16:00] VITALS: BP 110/75
[2020-06-08] MEDS: *INSULIN REGULAR(HUMULIN R)HUM 100 UNIT/ML VIAL SQ PRN (17:59)
--- NOTE | 2020-06-08 18:41 | NUR ---
RN Closing note Patient in bed, remains 2-3 confused, patient too sedated and held Xanax and cyclobenzaprine. Respiratory even and unlabored on room air. Skin is warm to touch, keep clean/dry. Patient removed IV, during day shift, IV site on left forearm and intact. Keep elevated HOB for ensure airway and aspiration precaution, also lowest bed position for safety. Patient refused Xanax and PO pain medication. Patient Encouraged oral fluid intake as tolerated. Obtained sign in consent for tomorrow procedure for left hip, patient NPO after midnight. Call light within reach, will endorse to signs cleaner.
--- NOTE | 2020-06-08 19:49 | NUR ---
MS EVICTION SPECIALIST INITIAL NOTES Received pt in bed resting with eyes closed but arousable to touch. no signs of any distress noted. kept him warm and comfortable at all times. Bed in low and lock in position with side rails and bed alarm set for safety. will continue monitoring.
[2020-06-08 20:11] VITALS: BP 98/70
--- NOTE | 2020-06-08 21:10 | NUR ---
stephon notes patient so sleepy but arouse when you waking him up but he just open his eyes then back to sleep again also noticed he's not in any discomfort at this times. breathing even and unlabored not in any distress. Blood pressure also 98/70 heart rate 92. Addendum: 06/08/20 at 2136 by TEX SCHAFER LVN melo Roper .
--- NOTE | 2020-06-08 21:28 | NUR ---
ms sewer and cutter finger buff material notes hold oxycontin for now as ordered.
[2020-06-08] MEDS: ATORVASTATIN 10 MG TABLET PO SCH (22:00)
[2020-06-08] MEDS: TRAZODONE 50 MG TABLET PO SCH (22:00)
[2020-06-08] MEDS: TAMSULOSIN 0.4 MG CAP.SR.24H PO SCH (22:00)
--- NOTE | 2020-06-08 23:00 | NUR ---
stack attendant notes pt too sedated , Skin warm to touch , no signs of any distress noted. hold due meds at this time per Dr Feldman as ordered. blood sugar checked done 306, it is ok to administered insulin even pt NPO after 12 MN.
[2020-06-09] MEDS: *INSULIN REGULAR(HUMULIN R)HUM 100 UNIT/ML VIAL SQ PRN ×2 (00:47→22:25)
[2020-06-09] MEDS: oxyCODONE HCL SR 40MG TAB.SR.12H PO SCH ×3 (05:00→22:07)
[2020-06-09] MEDS: PANTOPRAZOLE 40 MG TABLET.DR PO SCH (06:17)
[2020-06-09] MEDS: BLOOD SUGAR DIAGNOSTIC 1 EACH STRIP VI SCH ×4 (06:17→22:15)
[2020-06-09] MEDS: INSULIN REGULAR, HUMAN 100 UNIT/ML 3 ML VIAL SQ PRN ×2 (06:18→17:17)
--- NOTE | 2020-06-09 06:18 | NUR ---
ms bullet slug casting machine operator closing notes pt awake and alert after checking his blood sugar 209, no insulin due at this time because pt NPO going for surgery today. No signs of any hyper glycemia noted. morning care done. Pt stable throughout the night no signs of any discomfort noted unless he moved his legs. kept him warm and comfortable at all times. be din low and lock in position with side rails x2 up and place call light at reach. will endorse to am nurse for continuity of care.
[2020-06-09 07:12] LABS: BASOPHILS % (AUTO) 0.4 % (0.0-2.0); EOSINOPHILS % (AUTO) 1.6 % (0.0-6.0); HEMATOCRIT 45 % (39-51); HEMOGLOBIN 15.9 g/dL (13.5-17.5); LYMPHOCYTES # (AUTO) 0.9 /CMM (0.8-4.8); LYMPHOCYTES % (AUTO) 11.4 % (20.0-44.0); MEAN CORPUSCULAR HGB CONC 35 g/dl (31.0-36.0); MEAN CORPUSCULAR VOLUME 93 fL (80-96); MONOCYTES # (AUTO) 0.7 /CMM (0.1-1.30); NEUTROPHILS % (AUTO) 77.6 % (43.0-81.0); PLATELET COUNT (AUTO) 138 /CMM (150-450); RED BLOOD CELL COUNT(AUTO) 4.87 MIL/uL (4.5-6.0); WHITE BLOOD COUNT (AUTO) 7.8 K/uL (4.3-11.0)
--- NOTE | 2020-06-09 07:26 | NUR ---
MS RN OPENING NOTE PT RECEIVED AWAKE, RESTING IN BED IN NO APPARENT DISTRESS AT THIS TIME. PT IS A/O X 2-3, VERBAL, ABLE TO MAKE NEEDS KNOWN WITH NO C/O PAIN AT THIS TIME. PT IS ON ROOM AIR WITH NO S/SX OF RESPIRATORY DISTRESS OR SOB. PT HAS AN IV ON THE LEFT FOREARM G#20, PATENT, INTACT AND FLUSHING WELL WITH NO S/SX OF INFILTRATION, IRRITATION OR INFECTION. PT SCHEDULED FOR OPEN REDUCTION OF LEFT HIP SURGERY TODAY AT 9:30AM AND IS AWARE. SAFETY MEASURES IN PLACE: BED IN LOWEST POSITION AND LOCKED WITH BOTH UPPER SIDE RAILS UP X2. CALL LIGHT PLACED WITHIN REACH. WILL CONTINUE TO MONITOR.
[2020-06-09 07:43] LABS: ALBUMIN 2.7 g/dL (3.4-5.0); BILIRUBIN,TOTAL 0.7 mg/dL (0.2-1.0); CALCIUM, SERUM 9.7 mg/dL (8.5-10.1); CREATININE 0.8 mg/dL (0.6-1.3); MAGNESIUM 1.9 mg/dL (1.8-2.4); PHOSPHORUS 3.5 mg/dL (2.5-4.9); POTASSIUM 4.2 mmol/L (3.5-5.1); TOTAL PROTEIN, SERUM 9.6 g/dL (6.4-8.2)
[2020-06-09 08:00] VITALS: BP 110/78
[2020-06-09] MEDS: CYCLOBENZAPRINE 10 MG TABLET PO SCH ×3 (08:01→16:57)
[2020-06-09] MEDS: LISINOPRIL (10MG) 10 MG TABLET PO SCH (08:01)
[2020-06-09] MEDS: ENOXAPARIN SODIUM 40 MG/0.4 ML DISP.SYRIN SQ SCH (08:02)
[2020-06-09] MEDS: ALPRAZOLAM 1 MG TABLET PO SCH ×3 (08:02→16:57)
--- NOTE | 2020-06-09 09:00 | NUR ---
MS RN NOTES PATIENT TAKEN FOR HIP SURGERY AT 0900
[2020-06-09] MEDS ORDERED: BUPIVACAINE 0.5 % PF 150 MG/30 ML VIAL ONE (09:12)
[2020-06-09] MEDS ORDERED: BACITRACIN 50000 UNITS/VIAL ONE (09:12)
[2020-06-09] MEDS ORDERED: BUPIVACAINE 0.25% 75 MG/30 ML VIAL ONE (09:12)
[2020-06-09] MEDS ORDERED: FENTANYL PF 250MCG/5ML AMPUL ONE (09:42)
[2020-06-09] MEDS ORDERED: HYDROMORPHONE INJ 2 MG/ML DISP.SYRIN ONE ×2 (09:43→10:47)
[2020-06-09] MEDS ORDERED: CLINDAMYCIN 900 MG/6 ML VIAL ONE (10:07)
[2020-06-09] MEDS ORDERED: VANCOMYCIN 1 GM VIAL ONE (10:47)
[2020-06-09] MEDS ORDERED: FENTANYL PF 100MCG/2ML AMPUL ONE ×2 (12:06→12:37)
--- NOTE | 2020-06-09 12:46 | NUR ---
MS RN NOTES PATIENT STILL IN SURGERY.
[2020-06-09] MEDS ORDERED: HYDROMORPHONE 1 MG/1 ML DISP.SYRIN ONE (12:52)
[2020-06-09] MEDS ORDERED: MORPHINE SULFATE INJ 4 MG/ML DISP.SYRIN IV PRN (13:30)
[2020-06-09] MEDS: IV PREMIX D5 1/2NS + KCL 1,000 ML IV SCH (14:17)
[2020-06-09 16:00] VITALS: BP 151/87
[2020-06-09] MEDS: HYDROCODONE/APAP 10/325MG TABLET PO PRN (16:58)
--- NOTE | 2020-06-09 17:00 | NUR ---
MS RN NOTE PT C/O ACHING LEFT HIP PAIN RATED 7/10. ADMINISTERED NORCO 10-325 1 TAB PO Q4H PRN PER PT REQUEST. WILL CONTINUE TO MONITOR.
[2020-06-09] MEDS: CLINDAMYCIN 900 MG in IV D5W 50 ML IV SCH (17:24)
--- NOTE | 2020-06-09 18:52 | NUR ---
MS RN CLOSING NOTE PT IS AWAKE, RESTING IN BED IN NO APPARENT DISTRESS AT THIS TIME. PT IS A/O X 3, VERBAL, ABLE TO MAKE NEEDS KNOWN WITH NO C/O PAIN AT THIS TIME. PT IS ON ROOM AIR WITH NO S/SX OF RESPIRATORY DISTRESS OR SOB. PT HAS AN IV ON THE LEFT FOREARM G#20, PATENT, INTACT AND FLUSHING WELL, RUNNING D5 1/2 NS ADDED WITH 20 MEQ OF POTASSIUM AT 75 ML/HR, WITH NO S/SX OF INFILTRATION, IRRITATION OR INFECTION. SAFETY MEASURES MAINTAINED: BED IN LOWEST, LOCKED POSITION WITH BOTH UPPER SIDE RAILS UP X2. CALL LIGHT PLACED WITHIN REACH. WILL ENDORSE TO BIN OPERATOR NURSE.
[2020-06-09 20:00] VITALS: BP 135/81
[2020-06-09] MEDS: TAMSULOSIN 0.4 MG CAP.SR.24H PO SCH (22:00)
[2020-06-09] MEDS: TRAZODONE 50 MG TABLET PO SCH (22:07)
[2020-06-09] MEDS: ATORVASTATIN 10 MG TABLET PO SCH (22:07)
[2020-06-10] MEDS: CLINDAMYCIN 900 MG in IV D5W 50 ML IV SCH (02:11)
[2020-06-10] MEDS: IV PREMIX D5 1/2NS + KCL 1,000 ML IV SCH ×2 (02:16→16:08)
[2020-06-10] MEDS: oxyCODONE HCL SR 40MG TAB.SR.12H PO SCH ×3 (04:39→21:42)
[2020-06-10] MEDS: BLOOD SUGAR DIAGNOSTIC 1 EACH STRIP VI SCH ×4 (06:05→21:55)
[2020-06-10] MEDS: INSULIN REGULAR, HUMAN 100 UNIT/ML 3 ML VIAL SQ PRN ×2 (06:18→17:20)
[2020-06-10] MEDS: PANTOPRAZOLE 40 MG TABLET.DR PO SCH (06:18)
--- NOTE | 2020-06-10 07:17 | NUR ---
MS RN CLOSING NOTE AWAKE, RESTING IN BED IN NO DISTRESS . PT IS A/O X 3, VERBAL, ABLE TO MAKE NEEDS KNOWN DENIES C/O PAIN AT THIS TIME. PT ON ROOM AIR WITH NO S/SX OF RESPIRATORY DISTRESS OR SOB. PT HAS AN IV ON THE LEFT FOREARM G#20, PATENT, INTACT, RUNNING D5 1/2 NS ADDED WITH 20 MEQ OF POTASSIUM AT 75 ML/HR, WITH NO S/SX OF COMPLICATIONS. SAFETY MEASURES MAINTAINED: BED IN LOWEST, LOCKED POSITION SIDE RAILS UP X2. CALL LIGHT WITHIN REACH. PT EATING A SNACK. WILL ENDORSE TO ONCOMING SHIFT.
--- NOTE | 2020-06-10 07:30 | NUR ---
RN MS NOTES PT IN BED, AWAKE, ALERT AND ORIENTED, NO COMPLAINT OF PAIN AT THIS TIME, BREATHING PATTERN NORMAL, CALL LIGHT WITHIN REACH, IV FLUIDS INFUSING WELL, KEPT WARM AND COMFORTABLE IN BED.
[2020-06-10 08:00] VITALS: BP 114/64
[2020-06-10] MEDS: CYCLOBENZAPRINE 10 MG TABLET PO SCH ×3 (08:58→16:43)
[2020-06-10] MEDS: LISINOPRIL (10MG) 10 MG TABLET PO SCH (09:00)
[2020-06-10] MEDS: ALPRAZOLAM 1 MG TABLET PO SCH ×3 (09:00→16:37)
[2020-06-10] MEDS: ENOXAPARIN SODIUM 40 MG/0.4 ML DISP.SYRIN SQ SCH (09:01)
--- NOTE | 2020-06-10 10:00 | NUR ---
MS RN NOTES RECEIVED PATIENT FOR RAUL;MEDICALLY STABLE
[2020-06-10 10:07] LABS: *SPE A/G RATIO 0.4 (0.7-1.7); *SPE ALBUMIN 2.7 g/dL (2.9-4.4); *SPE ALPHA-1-GLOBULIN 0.4 g/dL (0.0-0.4); *SPE BETA GLOBULIN 1.7 g/dL (0.7-1.3); *SPE GLOBULIN, TOTAL 6.1 g/dL (2.2-3.9); *SPE M-SPIKE Not Observed g/dL (Not Observed)
--- NOTE | 2020-06-10 10:18 | NUR ---
RN MS NOTES ENDORSED CARE OF PT TO MESERET RICO.
[2020-06-10 15:54] VITALS: BP 105/67
--- NOTE | 2020-06-10 18:46 | NUR ---
MS RN CLOSING NOTE PT IS ASLEEP, RESTING IN BED IN NO APPARENT DISTRESS AT THIS TIME. PT IS A/O X 3, VERBAL, ABLE TO MAKE NEEDS KNOWN WITH NO C/O PAIN AT THIS TIME. PT IS ON ROOM AIR WITH NO S/SX OF RESPIRATORY DISTRESS OR SOB. PT HAS AN IV ON THE LEFT FOREARM G#20, PATENT, INTACT AND FLUSHING WELL, RUNNING D5 1/2 NS ADDED WITH 20 MEQ OF POTASSIUM AT 75 ML/HR, WITH NO S/SX OF INFILTRATION, IRRITATION OR INFECTION. SAFETY PRECAUTIONS IN PLACE: BED IN LOW POSITION AND LOCKED, RAILS UP X2, CALL LIGHT WITHIN REACH. WILL ENDORSE TO AUCTION BLOCK CLERK NURSE.
[2020-06-10 20:53] VITALS: BP 101/72
[2020-06-10] MEDS: TAMSULOSIN 0.4 MG CAP.SR.24H PO SCH (21:40)
[2020-06-10] MEDS: TRAZODONE 50 MG TABLET PO SCH (21:40)
[2020-06-10] MEDS: ATORVASTATIN 10 MG TABLET PO SCH (21:42)
--- NOTE | 2020-06-10 22:00 | NUR ---
CONCERN FOR ASPIRATION PT EATING A SNACK AND BEGAN COUGHING PROFUSELY. PT STATES, " I THINK IT WENT DOWN THE WRONG PIPE." PT ENCOURAGED TO SLOW DOWN WHILE EATING SPEECH THERAPY EVAL ORDERED TO ASSESS PTS ABILITY TOMORROW TO EAT DRINK SAFELY. WILL CONT TO MONITOR.
[2020-06-10] MEDS: *INSULIN REGULAR(HUMULIN R)HUM 100 UNIT/ML VIAL SQ PRN (22:08)
[2020-06-11] MEDS: HYDROCODONE/APAP 10/325MG TABLET PO PRN (03:16)
--- NOTE | 2020-06-11 04:48 | NUR ---
PT FOUND TO HAVE NON BLANCHEABLE REDNESS TO SACRUM. PICTURES TAKEN. WOUND CONSULT ORDERED. PT ON DARIA AIR MATTRESS. MEPILEX APPLIED TO AREA.
[2020-06-11] MEDS: oxyCODONE HCL SR 40MG TAB.SR.12H PO SCH ×2 (05:13→12:05)
[2020-06-11] MEDS: IV PREMIX D5 1/2NS + KCL 1,000 ML IV SCH (05:13)
[2020-06-11] MEDS: BLOOD SUGAR DIAGNOSTIC 1 EACH STRIP VI SCH ×2 (06:54→12:05)
[2020-06-11] MEDS: INSULIN REGULAR, HUMAN 100 UNIT/ML 3 ML VIAL SQ PRN ×2 (06:56→12:07)
--- NOTE | 2020-06-11 07:15 | NUR ---
MS RN OPENING NOTE RECEIVED PATIENT IN BED. A/O X3. ON ROOM AIR, TOLERATING WELL. NO SOB NOTED. NO S/S OF RESPIRATORY DISTRESS. DENIES ANY PAIN AND DISCOMFORT AT THIS TIME. IV ACCESS ON L FA #20 G, INTACT AND PATENT, D5 1/2 NS + 20 meq KCL RUNNING AT 75 ML/HR. SAFETY MEASURES MAINTAINED. BED IN LOWEST POSITION, BRAKES LOCKED. SIDE RAILS UP X2. CALL LIGHT WITHIN REACH. WILL CONTINUE PLAN OF CARE.
[2020-06-11 08:00] VITALS: BP 117/79
--- NOTE | 2020-06-11 08:01 | NUR ---
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 RECOMMENDATIONS MADE FOR SKIN PROTECTION AND DISCUSSED WITH NURSING STAFF. PT IS ON DARIA ISOFLEX LOW AIRLOSS BED. PT DEMONSTRATES ABILITY TO ASSIST WITH TURNING AND REPOSITIONING IN BED. MD IN AGREEMENT WITH PLAN OF CARE.
[2020-06-11] MEDS: PANTOPRAZOLE 40 MG TABLET.DR PO SCH (08:26)
[2020-06-11] MEDS: CYCLOBENZAPRINE 10 MG TABLET PO SCH ×2 (08:26→12:05)
[2020-06-11] MEDS: ALPRAZOLAM 1 MG TABLET PO SCH ×2 (08:26→12:05)
[2020-06-11] MEDS: LISINOPRIL (10MG) 10 MG TABLET PO SCH (08:26)
[2020-06-11] MEDS: ENOXAPARIN SODIUM 40 MG/0.4 ML DISP.SYRIN SQ SCH (08:39)
--- NOTE | 2020-06-11 08:42 | NUR ---
MS TRISHA NOTE CREDIT CARD ENDING IN 1813 WAS HANDED TO HIS BESTFRIEND NAMED DAGO HALL.
[2020-06-11] MEDS ORDERED: METFORMIN 500 MG TABLET PO SCH (09:00)
[2020-06-11 12:00] VITALS: BP 125/77
--- NOTE | 2020-06-11 14:50 | NUR ---
MS RN NOTES PATIENT IS DISCHARGED. PT IS MEDICALLY STABLE WITH VS BP 117/79 NH 70 RR 16 T 98.1 REPORT WAS GIVEN TO HUONG RICO FROM [facility]. PICKED UP BY 3 EMT'S AND BROUGHT DOWN VIA [facility]. HEALTH TEACHINGS AND DISCHARGE INSTRUCTIONS WERE GIVEN. VERBALIZED UNDERSTANDING. REMOVED IV ACCESS AND WRISTBAND. PT'S BELONGINGS WAS GIVEN TO THE EMT'S.
[2020-06-11] MEDS ORDERED: glipiZIDE 5 MG TABLET PO SCH (16:30)
== END 2020-06-11 15:00 | DRG 468 ==
LOC: ER 12:20 → MED 16:33
PROVIDERS: ADMIT Internal Medicine; ATTEND Internal Medicine
PROC: 0SJBXZZ Inspection of Left Hip Joint, External Approach (ICD-10-PCS; 2020-06-01)
PROC: 0SWS0JZ Revision of Synthetic Substitute in Left Hip Joint, Femoral Surface, Open Approach (ICD-10-PCS; principal; 2020-06-09)
PROC: 0KQP0ZZ Repair Left Hip Muscle, Open Approach (ICD-10-PCS; 2020-06-09)
DX: T84.021A Dislocation of internal left hip prosthesis, initial encounter (principal); I10 Essential (primary) hypertension; Y79.2 Prosthetic and other implants, materials and accessory orthopedic devices associated with adverse incidents; Z20.822 Contact with and (suspected) exposure to COVID-19; F17.210 Nicotine dependence, cigarettes, uncomplicated; G89.29 Other chronic pain; N40.0 Benign prostatic hyperplasia without lower urinary tract symptoms; Z79.84 Long term (current) use of oral hypoglycemic drugs; Z79.891 Long term (current) use of opiate analgesic; E78.5 Hyperlipidemia, unspecified; Y83.8 Other surgical procedures as the cause of abnormal reaction of the patient, or of later complication, without mention of misadventure at the time of the procedure; Y92.89 Other specified places as the place of occurrence of the external cause; E11.65 Type 2 diabetes mellitus with hyperglycemia
CPT/HCPCS: 36415; 71045-TC; 72170-TC; 73020; 73502; 80048-TC; 80053-TC; 80061-TC; 82962-TC; 83735-TC; 84100-TC; 84155; 84165; 85025-TC; 85730-TC; 87081-TC; 92521; 93307-TC; 97110-TC; 97112-TC; 97116-TC; 97530-TC; A4217; A6209; C9803; G0378; G0500; J0330; J1100; J1170; J1650; J1815; J2250; J2270; J2405; J2704; J3010; J3370; J3490; J7030; J7050; J7060

== ENCOUNTER 2020-06-29 12:44 | Inpatient (IN) | payer MEDICARE, OTHER ==
[~2020-06-29] VITALS: Ht 177.8 cm; Wt 77.1 kg
--- NOTE | 2020-06-29 12:51 | NUR ---
STEFANY FROM HOME TO ER BED 4. AAOX4. NOT IN RESP DISTRESS, BREATHING EVEN AND UNLABORED. BROUGHT IN FOR L HIP PAIN S/P GLF. PT WAS FOUND ON THE FLOOR AND WAS REPORTED THAT HE WAS LYING ON THE FLOOR FOR THE PAST 12HRS. PT WAS CALLED IN BY AUTOMATIC CORN GRINDER OPERATOR PER EMS. PEDAL PULSE APPRECIATED. AWAITING MD FOR EVAL.
--- NOTE | 2020-06-29 12:53 | NUR ---
EMS REPROT GIVING FENTANYL 100MCG BY EMS.
--- NOTE | 2020-06-29 13:10 | NUR ---
XRAY AT BEDSIDE
[2020-06-29] MEDS ORDERED: IV NS 0.9% 500 ML BAG IV ONE (13:30)
[2020-06-29 13:35] LABS: BASOPHILS # (AUTO) 0.1 /CMM (0.0-0.2); HEMATOCRIT 39 % (39-51); HEMOGLOBIN 13.4 g/dL (13.5-17.5); LYMPHOCYTES % (AUTO) 15.2 % (20.0-44.0); MEAN CORPUSCULAR HGB CONC 34 g/dl (31.0-36.0); MEAN CORPUSCULAR VOLUME 95 fL (80-96); MONOCYTES # (AUTO) 0.6 /CMM (0.1-1.30); MONOCYTES % (AUTO) 9.1 % (2.0-12.0); NEUTROPHILS # (AUTO) 4.7 /CMM (1.8-8.9); NEUTROPHILS % (AUTO) 72.7 % (43.0-81.0); PLATELET COUNT (AUTO) 126 /CMM (150-450); RED BLOOD CELL COUNT(AUTO) 4.12 MIL/uL (4.5-6.0); WHITE BLOOD COUNT (AUTO) 6.5 K/uL (4.3-11.0)
[2020-06-29 13:51] LABS: ALBUMIN 2.7 g/dL (3.4-5.0); BILIRUBIN,DIRECT 0.2 mg/dL (0.0-0.2); BILIRUBIN,TOTAL 0.5 mg/dL (0.2-1.0); CALCIUM, SERUM 8.8 mg/dL (8.5-10.1); CREATININE 0.6 mg/dL (0.6-1.3); POTASSIUM 3.8 mmol/L (3.5-5.1); TOTAL PROTEIN, SERUM 8.7 g/dL (6.4-8.2)
[2020-06-29] MEDS ORDERED: MORPHINE SULFATE INJ 4 MG/ML DISP.SYRIN ONE (13:57)
[2020-06-29] MEDS ORDERED: ONDANSETRON HCL/PF 4 MG/2 ML VIAL ONE (13:57)
[2020-06-29] MEDS ORDERED: ONDANSETRON HCL/PF - ER 4 MG/2 ML VIAL IV ONE (14:00)
[2020-06-29] MEDS ORDERED: MORPHINE SULFATE INJ 4 MG/ML DISP.SYRIN IV ONE (14:00)
--- NOTE | 2020-06-29 14:20 | NUR ---
PHLEB AT BEDSIDE FOR BLOOD DRAW
--- NOTE | 2020-06-29 14:33 | NUR ---
ORTHO CALLED DR. GREWAL [phone]
[2020-06-29] MEDS ORDERED: MONT10TA22 PO (14:47)
[2020-06-29] MEDS ORDERED: DULA1.5P SQ (14:47)
[2020-06-29] MEDS ORDERED: OXYC80TA40 PO (14:47)
--- NOTE | 2020-06-29 15:06 | NUR ---
MOVE SHEET SUBMITTED AND CALLED FOR MS BED.
--- NOTE | 2020-06-29 15:51 | NUR ---
GOT BED 308-1
--- NOTE | 2020-06-29 15:56 | NUR ---
[facility] CALLED [facility] COUNSEL[facility] PAGED.
--- NOTE | 2020-06-29 16:13 | NUR ---
REPROT GIVEN TO TRISHA CHEN FOR RAUL
--- NOTE | 2020-06-29 16:34 | NUR ---
ADALBERTO AT BEDSIDE.
--- NOTE | 2020-06-29 16:34 | NUR ---
NPO TILL AFTER MIDNIGHT PER HOSPITALIST
--- NOTE | 2020-06-29 17:00 | NUR ---
MS MANAGER TERMINAL NOTES ADMITTED PATIENT TODAY FROM ER FOR LEFT HIP DISLOCATION DIAGNOSIS , BROUGHT INTO ROOM 308-1 VIA GURNEY ACCOMPANIED BY 2 ER NURSES , PT AWAKE VERBALLY RESPONSIVE , AOX4 , ABLE TO MAKE NEEDS KNOWN. BREATHING EVEN AND UNLABORED ON ROOM AIR, IV LINE L AC 18 GAUGE INTASCT AND PATENT , PT IS ABLE TO MOVE INDEPENDANTLY IN BED BUT NEEDS ASSISTANCE WITH LEFT LOWER EXT MOVEMENT. C/O OF L HIP/ L EXT PAIN AND DISCOMFORT, ABLE TO TOLERATE PAIN AT THIS TIME. PATIENT IS CONTINENT , NO SKIN ISSUES PRESENT. ASSISTANT MAINTENANCE MANAGER MARYAM MILLER , ADMITTING ASSISTANT MAINTENANCE MANAGER AWARE OF ADMISSION , PT WAS ORIENTED TO ROOM , CALL LIGHT FOR ASSISTANCE, SAFETY PRECAUTIONS IN PLACE , WILL CONT TO MONITOR.
--- NOTE | 2020-06-29 17:01 | NUR ---
RN NOTES PATIENT WAS ASKED TO TURN TO THE SIDE IN ORDER TO SEE THE BACK FOR SKIN ISSUES BUT PATIENT REFUSED, STATING THAT HIS HIP IS IN A LOT OF PAIN AND CANNOT TURN AT THIS TIME. SKIN CHECK AT THE BACK DEFERRED AT THIS TIME AND WILL TRY AGAIN WHEN PATIENT IS ABLE TO. WILL CONTINUE TO MONITOR.
--- NOTE | 2020-06-29 17:30 | NUR ---
RN NOTES PHOTO OF PREVIOUS L HIP SURGICAL SITE W/ SCAB TAKEN; NO BLEEDING NOTED. SITE WAS NOTED TO BE DRY AND KEPT CLEAN. PATIENT IS ABLE TO TURN AND REPOSITION SELF IN BED W/ MINIMAL ASSISTANCE. WOUND CARE CONSULT IN PLACE. WILL CONTINUE TO MONITOR.
--- NOTE | 2020-06-29 17:31 | NUR ---
RN NOTES PATIENT UNABLE TO FULLY TURN TO SIDE AND UNABLE TO VISUALIZE BACK COMPLETELY; TRIED TO ASSIST PATIENT BUT PATIENT REFUSED TO MOVE BECAUSE OF COMPLAINT OF PAIN. WILL RETRY AGAIN WHEN PATIENT IS ABLE TO ASSIST BETTER IN MOBILITY.
--- NOTE | 2020-06-29 18:13 | NUR ---
RN NOTES RECEIVED CALL FROM ADALBERTO MILLER NP, AND MADE AWARE OF MED RECON; PER GUZZLER BUILDER, PATIENT IS OKAY TO EAT FOR DINNER TODAY BUT WILL BE NPO POST MIDNIGHT. WILL ALSO DO MED RECON FOR PATIENT. PATIENT CURRENTLY EATING DINNER W/ NO ISSUES NOTED. WILL CONTINUE TO MONITOR.
[2020-06-29] MEDS ORDERED: DEXTROSE 50%-WATER 50 ML DISP.SYRIN IV PRN (18:30)
[2020-06-29] MEDS ORDERED: CYCLOBENZAPRINE 10 MG TABLET PO PRN (18:30)
[2020-06-29] MEDS ORDERED: HYDROCODONE/APAP 10/325MG TABLET PO PRN (18:30)
[2020-06-29] MEDS ORDERED: Z GUARD REMEDY 2 OZ OINT TP PRN (19:30)
[2020-06-29] MEDS ORDERED: ONDANSETRON HCL/PF 4 MG/2 ML VIAL IVP PRN (19:30)
[2020-06-29] MEDS ORDERED: ACETAMINOPHEN 325 MG TABLET PO PRN (19:30)
[2020-06-29] MEDS ORDERED: MAG HYDROX/AL HYDROX/SIMETH 30 ML UDC PO PRN (19:30)
--- NOTE | 2020-06-29 19:36 | NUR ---
MS RN OPENING NOTE PATIENT A/OX4; ABLE TO MAKE NEEDS KNOWN. ON ROOM AIR, TOLERATING WELL WITH NO SOB. COMPLAINS OF HIP PAIN; WILL ADMINISTER PAIN MEDICATIONS PER ORDER AND WILL ENCOURAGE INTERVENTIONS TO REDUCE PAIN. LAC #18G; PATENT AND INTACT. SAFETY MEASURES IN PLACE: BED IN LOWEST LOCKED POSITION, CALL LIGHT WITHIN EASY REACH, SIDE RAILS UPX2, BED ALARMS ON. PATIENT IS IN STABLE CONDITION AND WILL CONTINUE PLAN OF CARE.
[2020-06-29 20:00] VITALS: BP 110/79
[2020-06-29] MEDS: oxyCODONE HCL SR 40MG TAB.SR.12H PO SCH (20:02)
[2020-06-29] MEDS: TRAZODONE 50 MG TABLET PO SCH (21:51)
[2020-06-29] MEDS: BLOOD SUGAR DIAGNOSTIC 1 EACH STRIP IN SCH (21:52)
[2020-06-29] MEDS: ZOLPIDEM TARTRATE 5 MG TABLET PO PRN (21:52)
[2020-06-29] MEDS: INSULIN REGULAR, HUMAN 100 UNIT/ML 3 ML VIAL SQ PRN (21:54)
[2020-06-29] MEDS ORDERED: ATORVASTATIN 10 MG TABLET PO SCH (22:00)
[2020-06-30] MEDS: IV NS 0.9% 1,000 ML IV PRN (01:18)
[2020-06-30] MEDS: HYDROMORPHONE 1 MG/1 ML DISP.SYRIN IV PRN ×3 (01:21→20:33)
--- NOTE | 2020-06-30 01:21 | NUR ---
MS RN NOTES - PAIN PATIENT C/O 01/04 L HIP PAIN. ADMINISTERED DILAUDID ORDERED. WILL CONTINUE TO ASSESS FOR PAIN
[2020-06-30] MEDS: oxyCODONE HCL SR 40MG TAB.SR.12H PO SCH ×3 (04:27→21:18)
[2020-06-30 05:50] LABS: BASOPHILS % (AUTO) 0.6 % (0.0-2.0); EOSINOPHILS % (AUTO) 7.8 % (0.0-6.0); HEMATOCRIT 38 % (39-51); HEMOGLOBIN 12.8 g/dL (13.5-17.5); LYMPHOCYTES # (AUTO) 1.6 /CMM (0.8-4.8); LYMPHOCYTES % (AUTO) 27.6 % (20.0-44.0); MEAN CORPUSCULAR HGB CONC 34 g/dl (31.0-36.0); MEAN CORPUSCULAR VOLUME 95 fL (80-96); MONOCYTES # (AUTO) 0.5 /CMM (0.1-1.30); MONOCYTES % (AUTO) 9.5 % (2.0-12.0); NEUTROPHILS # (AUTO) 3.1 /CMM (1.8-8.9); NEUTROPHILS % (AUTO) 54.5 % (43.0-81.0); PLATELET COUNT (AUTO) 107 /CMM (150-450); RED BLOOD CELL COUNT(AUTO) 3.98 MIL/uL (4.5-6.0); WHITE BLOOD COUNT (AUTO) 5.7 K/uL (4.3-11.0)
[2020-06-30] MEDS: BLOOD SUGAR DIAGNOSTIC 1 EACH STRIP IN SCH ×4 (06:15→22:08)
[2020-06-30] MEDS: INSULIN REGULAR, HUMAN 100 UNIT/ML 3 ML VIAL SQ PRN ×4 (06:17→22:17)
[2020-06-30 06:21] LABS: ALBUMIN 2.5 g/dL (3.4-5.0); BILIRUBIN,TOTAL 0.5 mg/dL (0.2-1.0); CALCIUM, SERUM 8.7 mg/dL (8.5-10.1); CREATININE 0.6 mg/dL (0.6-1.3); MAGNESIUM 1.9 mg/dL (1.8-2.4); PHOSPHORUS 3.9 mg/dL (2.5-4.9); POTASSIUM 4.7 mmol/L (3.5-5.1); TOTAL PROTEIN, SERUM 8.2 g/dL (6.4-8.2)
--- NOTE | 2020-06-30 06:45 | NUR ---
MS RN CLOSING NOTE PATIENT A/OX4; ABLE TO MAKE NEEDS KNOWN. ON ROOM AIR, TOLERATING WELL WITH NO SOB. COMPLAINS OF L HIP PAIN; WILL ENDORSE MORNING RN TO ADMINISTER PAIN MEDICATIONS PER ORDER. LAC #18G; INFUSING NS @ 75ML/HR; PATENT AND INTACT. MAINTAINED NPO DIET AFTER MIDNIGHT. SAFETY MEASURES IN PLACE: BED IN LOWEST LOCKED POSITION, CALL LIGHT WITHIN EASY REACH, SIDE RAILS UPX2, BED ALARMS ON. PATIENT IS IN STABLE CONDITION AND WILL ENDORSE PLAN OF CARE TO ONCOMING MORNING RN.
[2020-06-30] MEDS: PANTOPRAZOLE 40 MG TABLET.DR PO SCH (07:30)
--- NOTE | 2020-06-30 07:40 | NUR ---
MS RN OPENING NOTE PATIENT A/OX4; ABLE TO MAKE NEEDS KNOWN. ON ROOM AIR, TOLERATING WELL WITH NO SOB. NO S/SX OF DISTRESS. PATIENT IS NWB DUE TO HIP FRACTURE AND NPO AT THIS TIME SINCE 12AM PER REPORT. BREATHING EVENLY AND UNLABORED. SKIN INTACT WITH L HIP SURGICAL SITE. LAC #18G; PATENT AND INTACT, FLUIDS ARE INFUSING. SAFETY MEASURES IN PLACE: BED IN LOWEST LOCKED POSITION, CALL LIGHT WITHIN EASY REACH, SIDE RAILS UPX2, BED ALARMS MOLDING TECHNICIAN LIGHT WITHIN REACH. PATIENT IS IN STABLE CONDITION, WILL CONTINUE TO MONITOR THROUGHOUT SHIFT.
[2020-06-30 08:00] VITALS: BP 117/73
--- NOTE | 2020-06-30 08:00 | NUR ---
PATIENT COMPLAINED OF PAIN 8/10 RADIATING PAIN FROM HIP TO LOWER LEG. GAVE DILAUDID PRN ORDERED. WILL REASSESS PAIN
[2020-06-30] MEDS: MONTELUKAST SODIUM (10MG) 10 MG TABLET PO SCH (08:02)
--- NOTE | 2020-06-30 08:52 | NUR ---
RN NOTES INFORMED BY CHARGE NURSE THAT NO CURRENT PROCEDURE SCHEDULED AT THIS TIME; OK TO GIVE FOOD TO PATIENT FOR NOW. [facility]
[2020-06-30] MEDS ORDERED: glipiZIDE 5 MG TABLET PO SCH (09:00)
--- NOTE | 2020-06-30 09:50 | NUR ---
RN NOTES PATIENT ALLOWED NURSES TO CHECK HIS BACK AREA TO INSPECT FOR ANY SKIN ISSUES. PHOTO OF SKIN ISSUE TAKEN AND PLACED IN CHART.
--- NOTE | 2020-06-30 09:52 | NUR ---
RN NOTES WOUND CARE NURSE CAME TO EVALUATE THE PATIENT. PATIENT ALLOWED NURSES TO CHECK HIS POSTERIOR AREA. PATIENT WAS NOTED WITH WOUND [id number]. WITH WOUND TREATMENT RECOMMENDATIONS. WILL CONTINUE TO MONITOR.
--- NOTE | 2020-06-30 10:23 | NUR ---
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 RECOMMENDATIONS MADE FOR SKIN PROTECTION AND WOUND CARE. DISCUSSED WITH NURSING STAFF. DR APRIL DRAKE CALLED FOR SURGICAL CONSULT OF PRESACRAL WOUND. PT TO BE PLACED ON DARIA ISOFLEX LOW AIRLOSS BED. IN AGREEMENT WITH PLAN OF CARE. Addendum: 06/30/20 at 1025 by HAMZAH STEPHENS WNDNU Amended: Links added.
[2020-06-30] MEDS ORDERED: HYDROGEL DRESSING 90 GM TUBE TP PRN (10:30)
--- NOTE | 2020-06-30 10:49 | NUR ---
RN NOTES PATIENT PLACED ON DARIA ISOFLEX LOW AIR-LOSS BED FOR SKIN INTEGRITY AND WOUND MGT. PATIENT ABLE TO ASSIST W/ BED MOBILITY WHEN IN BED.
[2020-06-30] MEDS: HYDROCODONE/APAP 5/325MG TABLET PO PRN ×2 (11:35→16:02)
[2020-06-30] MEDS: HYDROGEL DRESSING 90 GM TUBE TP SCH (12:01)
--- NOTE | 2020-06-30 14:15 | NUR ---
RN NOTES PATIENT WAS SEEN BY ELAINE ZARATE OF DR. DRAKE, AND EXPLAINED PLAN OF CARE FOR DEBRIDEMENT OF SACRAL STAGE 3 PRESSURE INJURY. PATIENT REFUSED DEBRIDEMENT AT THIS TIME, STATES THAT IT'S PAINFUL FOR HIM TO TURN TO HIS SIDE; EXPLAINED IMPORTANCE OF WOUND DEBRIDEMENT BUT PATIENT STILL REFUSED. WILL CONTINUE WITH WOUND TREATMENT ORDERED AND MONITOR ACCORDINGLY.
[2020-06-30 16:00] VITALS: BP 107/64
--- NOTE | 2020-06-30 16:00 | NUR ---
RN NOTES PATIENT COMPLAINED OF PAIN 6/10 RADIATING PAIN FROM HIP TO LOWER LEG. GAVE NORCO PRN ORDERED. WILL REASSESS PAIN
--- NOTE | 2020-06-30 18:34 | NUR ---
MS RN CLOSING NOTE PATIENT A/OX4; ABLE TO MAKE NEEDS KNOWN. ON ROOM AIR, TOLERATING WELL WITH NO SOB. NO S/SX OF DISTRESS. PATIENT IS NWB DUE TO HIP FRACTURE. PATIENT IS ON CCHO DIET DUE TO NO SURGERY CURRENTLY SCHEDULED, AWAITING SURGERY TIME. PATIENT ASKED TO BE OFF IV DUE TO DRINKING FLUIDS, ONCE NPO PATIENT HAS ORDER FOR NS @ 75 ML/HR. BREATHING EVENLY AND UNLABORED. LAC #18G; PATENT AND INTACT. SKIN NOTED WITH PRESSURE ULCER ON SACRUM AND L HIP SURGICAL SITE. SAFETY MEASURES IN PLACE: BED IN LOWEST LOCKED POSITION, CALL LIGHT WITHIN EASY REACH, SIDE RAILS UPX2, BED ALARMS BIOLOGY INTERNSHIP LIGHT WITHIN REACH. PATIENT COMPLAINED OF PAIN THROUGHOUT SHIFT, PAIN MEDICATION WAS GIVEN ORDERED. PATIENT IS IN STABLE CONDITION.
[2020-06-30 20:00] VITALS: BP 117/63
--- NOTE | 2020-06-30 20:43 | NUR ---
MS RN OPENING NOTES PT WAS SEEN AWAKE LYING IN BED. PT IS ALERT AND ORIENTED X 4. PT'S STABLE ON ROOM AIR, BREATHING EVEN AND UNLABORED. PT HAD 10/10 ACHING AND THROBBING PAIN IN LEFT HIP. PT WAS GIVEN DILAUDID 1 MG/1ML IV AT 2032. WILL CONTINUE TO MONITOR PAIN. PT HAS A PRESSURE ULCER ON SACRUM AND A SURGICAL SITE ON LEFT HIP. PT HAS AN IV ACCESS ON LAC WHICH IS INTACT AND PATENT. SAFETY MEASURES IN PLACE. CALL LIGHT WITHIN EASY REACH AND BED ALARM ON. WILL CONTINUE TO MONITOR THE PT.
[2020-06-30] MEDS: TRAZODONE 50 MG TABLET PO SCH (21:19)
[2020-06-30] MEDS: ALPRAZOLAM 1 MG TABLET PO PRN (21:26)
[2020-06-30] MEDS: ZOLPIDEM TARTRATE 5 MG TABLET PO PRN (21:26)
[2020-07-01 05:01] LABS: BILIRUBIN,URINE NEGATIVE (NEGATIVE); COLOR,URINE YELLOW (YELLOW); LEUKOCYTE ESTERASE ,URINE NEGATIVE (NEGATIVE); NITRITE, URINE NEGATIVE (NEGATIVE); PROTEIN,URINE NEGATIVE (NEGATIVE); UGLUCOSE NEGATIVE (NEGATIVE); UROBILINOGEN,URINE 0.2 EU/dL (0.2)
[2020-07-01] MEDS: oxyCODONE HCL SR 40MG TAB.SR.12H PO SCH ×3 (06:09→21:28)
--- NOTE | 2020-07-01 06:42 | NUR ---
RM MS NOTES PT WAS UNCOOPERATIVE AND REFUSED TO HAVE HIS FINGER STICK BLOOD SUGAR CHECKED AT 0630. PT IS SLEEPING AT THIS TIME. WILL CONTINUE TO MONITOR THE PT.
--- NOTE | 2020-07-01 07:00 | NUR ---
MS RN CLOSING NOTES PT WAS SEEN SLEEPING IN BED. PT IS ALERT AND ORIENTED X 4. PT'S STABLE ON ROOM AIR, BREATHING EVEN AND UNLABORED. PT HAS A PRESSURE ULCER ON SACRUM AND A SURGICAL SITE ON LEFT HIP. PT HAS AN IV ACCESS ON LAC WHICH IS INTACT AND PATENT. SAFETY MEASURES IN PLACE. CALL LIGHT WITHIN EASY REACH AND BED ALARM ON. WILL ENDORSE CONTINUITY OF CARE TO DAY SHIFT NURSE.
[2020-07-01] MEDS: BLOOD SUGAR DIAGNOSTIC 1 EACH STRIP IN SCH ×4 (07:30→22:19)
[2020-07-01] MEDS: PANTOPRAZOLE 40 MG TABLET.DR PO SCH (07:30)
--- NOTE | 2020-07-01 07:35 | NUR ---
MS RN RECEIVED RESIDENT IN BED, ALERT, AWAKE, ORIENTED X4, ABLE TO MAKE NEEDS KNOWN, VERBALLY RESPONSIVE. BREATHING EVEN AND NON-LABORED. NO COMPLAINT OF PAIN/DISCOMFORT AT THIS TIME. IV ON RIGHT WRIST NOTED, PATENT, INTACT, NO S/S OF INFILTRATION. ALL NEEDS ATTENDED PROMPTLY. CALL LIGHT WITHIN EASY REACH.
[2020-07-01 08:00] VITALS: BP 124/74
--- NOTE | 2020-07-01 08:00 | NUR ---
MS OPENING NOTES RESIDENT IN BED, ASLEEP BUT EASILY AROUSABLE. NO S/S OF PAIN OR DISCOMFORT AT THIS TIME. BREATHING EVEN AND NON-LABORED. IV NOTED ON LEFT AC, NO S/S OF INFILTRATION. CALL LIGHT WITHIN EASY REACH.
[2020-07-01] MEDS: MONTELUKAST SODIUM (10MG) 10 MG TABLET PO SCH (09:00)
[2020-07-01] MEDS: ENOXAPARIN SODIUM 40 MG/0.4 ML DISP.SYRIN SQ SCH (09:00)
[2020-07-01] MEDS: HYDROMORPHONE 1 MG/1 ML DISP.SYRIN IV PRN ×2 (11:01→17:18)
--- NOTE | 2020-07-01 12:00 | NUR ---
ms rn patient refused iv to continue, aware.
--- NOTE | 2020-07-01 12:06 | NUR ---
MS RN EXCISIONAL DEBRIDEMENT OF SACRAL PRESSURE ULCER DONE BY JOEY LOVETT, NO S/S OF INFECTION, MINIMAL BLEEDING NOTED, NO FOUL ODOR, COVERED WITH DR DRESSING. WILL CONTINUE TO MONITOR.
[2020-07-01] MEDS: INSULIN REGULAR, HUMAN 100 UNIT/ML 3 ML VIAL SQ PRN ×3 (12:44→22:18)
[2020-07-01] MEDS: HYDROGEL DRESSING 90 GM TUBE TP SCH (12:48)
[2020-07-01 14:13] LABS: BASOPHILS % (AUTO) 0.7 % (0.0-2.0); EOSINOPHILS % (AUTO) 6.7 % (0.0-6.0); HEMATOCRIT 35 % (39-51); HEMOGLOBIN 11.8 g/dL (13.5-17.5); LYMPHOCYTES # (AUTO) 1.1 /CMM (0.8-4.8); LYMPHOCYTES % (AUTO) 23.2 % (20.0-44.0); MEAN CORPUSCULAR HGB CONC 34 g/dl (31.0-36.0); MEAN CORPUSCULAR VOLUME 95 fL (80-96); MONOCYTES # (AUTO) 0.4 /CMM (0.1-1.30); NEUTROPHILS % (AUTO) 60.4 % (43.0-81.0); PLATELET COUNT (AUTO) 101 /CMM (150-450); RED BLOOD CELL COUNT(AUTO) 3.67 MIL/uL (4.5-6.0); WHITE BLOOD COUNT (AUTO) 4.9 K/uL (4.3-11.0)
[2020-07-01 14:27] LABS: ALBUMIN 2.3 g/dL (3.4-5.0); BILIRUBIN,TOTAL 0.4 mg/dL (0.2-1.0); CALCIUM, SERUM 8.2 mg/dL (8.5-10.1); CREATININE 0.7 mg/dL (0.6-1.3); TOTAL PROTEIN, SERUM 7.5 g/dL (6.4-8.2)
[2020-07-01 15:50] VITALS: BP 96/60
--- NOTE | 2020-07-01 18:18 | NUR ---
MS CLOSING NOTE RESIDENT IN BED, ALERT, AWAKE, ORIENTED X4, ABLE TO MAKE NEEDS KNOWN, VERBALLY RESPONSIVE. BREATHING EVEN AND NON-LABORED. NO COMPLAINT OF PAIN OR DISCOMFORT AT THIS TIME. ALL DUE MEDS ARE GIVEN ORDERED, NO ADR NOTED, TOLERATED WELL. IV SITE ON LEFT AC, PATENT, INTACT, NO S/S OF INFILTRATION. KEPT CLEAN AND DRY. ALL NEEDS MET TO PROMPTLY. CALL LIGHT WITHIN EASY REACH.
--- NOTE | 2020-07-01 19:00 | NUR ---
RECEIVED IN BED ALERT AND ORIENTAED X4 IV NOT RUNNING SITE RED RESTARTED WITH 20 G LEFT UPPER ARM, PT ADAMENT WERE TO PLACE IV HE IS LOUD AND ONLY WANTS REQUISTE DONE HIS WAY OR NURSING NEEDS. HE IS ARGUMENTIVE.
[2020-07-01 20:06] VITALS: BP 112/70
[2020-07-01 20:30] VITALS: BP 112/70
[2020-07-01] MEDS: ALPRAZOLAM 1 MG TABLET PO PRN (22:25)
[2020-07-01] MEDS: TRAZODONE 50 MG TABLET PO SCH (22:25)
[2020-07-01] MEDS: ZOLPIDEM TARTRATE 5 MG TABLET PO PRN (22:26)
[2020-07-02] VITALS (8 sets, daily range): BP systolic 122–145; BP diastolic 69–82
[2020-07-02] MEDS: IV NS 0.9% 1,000 ML IV PRN (00:52)
--- NOTE | 2020-07-02 04:13 | NUR ---
ENDING NOTES: MEDICATED WITH HIS NIGHT TIME MEDS. SLEPT WELL THRU THE NIGHT. REASP EVEN AND UNLABORED 16 TO 18 BPM SKIN WRM AND DRY SAT TAKEN WHILE PT ASLEEP NOT HIS [place]SON ROOM AIR AND ASLEEP WAS 80% PT SUPINE POSITION. PLACED ON 2 LITERS N/C PATENT WOKE UP AND ALLOWED ME TO PLACE THE O2 N/C. USING THE URINAL. KEPT NPO AFTER MIDNIGHT D/T POSSIBLE SCHEDULING FOR THE FIXING OF THE LEFT HIP BY MD GREWAL. IV CONT TO INFUSE THRU THE NIGHT SITE LEFT UPPER ARM. HE IS ADAMET ABOUT NOT BEING REPOSITIONED AND LYING ON THE RIGHT , MADE HIM AWARE OF THE SKIN ULCER ON HIS BACK SIDE, HE STATED " I KNOW". RIGHT / LEFT PPP AND SALVATORE FEET WARM HE IS ABLE TO MOVE ABOUT IN BED INDEPENTENDLY
[2020-07-02] MEDS: oxyCODONE HCL SR 40MG TAB.SR.12H PO SCH (05:00)
--- NOTE | 2020-07-02 05:08 | NUR ---
0500 AM OXYCODONE NOT GIVEN D/T TO SEDATED WILL WAKE UP BUT NEEDS TO BE CALLED AND ARM SHANKEN TO AROUSE HIM. AWAKENS ALERT BUT FALLS ASLEEP AGAIN. 02 ON 2 LITERS AT 96% W/O 02 WHEN ASLEEP SATS 80%.
[2020-07-02] MEDS: BLOOD SUGAR DIAGNOSTIC 1 EACH STRIP IN SCH ×4 (05:37→21:12)
[2020-07-02] MEDS: INSULIN REGULAR, HUMAN 100 UNIT/ML 3 ML VIAL SQ PRN ×2 (06:34→17:36)
[2020-07-02 06:47] LABS: BASOPHILS % (AUTO) 0.6 % (0.0-2.0); EOSINOPHILS % (AUTO) 7.8 % (0.0-6.0); HEMATOCRIT 35 % (39-51); HEMOGLOBIN 11.8 g/dL (13.5-17.5); LYMPHOCYTES # (AUTO) 1.5 /CMM (0.8-4.8); LYMPHOCYTES % (AUTO) 27.3 % (20.0-44.0); MEAN CORPUSCULAR HGB CONC 34 g/dl (31.0-36.0); MEAN CORPUSCULAR VOLUME 94 fL (80-96); MONOCYTES # (AUTO) 0.5 /CMM (0.1-1.30); MONOCYTES % (AUTO) 9.8 % (2.0-12.0); NEUTROPHILS # (AUTO) 2.9 /CMM (1.8-8.9); NEUTROPHILS % (AUTO) 54.5 % (43.0-81.0); PLATELET COUNT (AUTO) 101 /CMM (150-450); RED BLOOD CELL COUNT(AUTO) 3.68 MIL/uL (4.5-6.0); WHITE BLOOD COUNT (AUTO) 5.4 K/uL (4.3-11.0)
[2020-07-02 07:01] LABS: CALCIUM, SERUM 8.5 mg/dL (8.5-10.1); CREATININE 0.7 mg/dL (0.6-1.3); POTASSIUM 4.2 mmol/L (3.5-5.1)
[2020-07-02] MEDS: PANTOPRAZOLE 40 MG TABLET.DR PO SCH (07:30)
--- NOTE | 2020-07-02 08:00 | NUR ---
MS RN OPENING NOTES PATIENT IN BED, ASLEEP BUT EASILY AROUSABLE. NO MANIFESTATION OF PAIN OR DISCOMFORT AT THIS TIME. LEFT UPPER ARM IV NOTED, CONNECTED TO NS AT 75ML/HR, INFUSING WELL, INTACT, PATENT, NO S/S OF INFILTRATION. KEPT CLEAN AND DRY. ALL NEEDS AND CARE ATTENDED. CALL LIGHT WITHIN EASILY REACH.
[2020-07-02] MEDS: MONTELUKAST SODIUM (10MG) 10 MG TABLET PO SCH (09:00)
[2020-07-02] MEDS: ENOXAPARIN SODIUM 40 MG/0.4 ML DISP.SYRIN SQ SCH (09:00)
[2020-07-02] MEDS: HYDROGEL DRESSING 90 GM TUBE TP SCH (09:36)
[2020-07-02] MEDS ORDERED: ANESTHESIA TRAY IN PYXIS 1 EA TRAY MC ONE (11:58)
--- NOTE | 2020-07-02 12:10 | NUR ---
MS RN PATIENT PICKED UP BY SURGERY TEAM VIA BED FOR LEFT HIP CLOSED REDUCTION UNDER ANESTHESIA. ALERT, AWAKE, ORIENTED X4, ABLE TO MAKE NEEDS KNOWN, VERBALLY RESPONSIVE. NO COMPLAINT OF PAIN OR DISCOMFORT AT THIS TIME. BREATHING EVEN AND NON-LABORED. LEFT UPPER ARM IV SITE NOTED, INTACT, PATENT, NO S/S OF INFILTRATION. VITAL SIGN BP 128/80 HR 75 RR 18 TEMPERATURE 97.4 DEGREES FAHRENHEIT 97% ROOM AIR. ALL NEEDS AND CARE ATTENDED WELL.
[2020-07-02] MEDS ORDERED: FENTANYL PF 100MCG/2ML AMPUL ONE ×2 (12:18→13:16)
[2020-07-02] MEDS ORDERED: IV PREMIX D5 1/2NS + KCL 1,000 ML IV PRN (13:00)
--- NOTE | 2020-07-02 13:29 | NUR ---
MS RN RECEIVED A CALL FROM MARIEL FROM [facility] REGARDING PATIENT DONE WITH THE SURGERY AND READY TO COME BACK TO THE UNIT WITH NEW ORDERS.
--- NOTE | 2020-07-02 13:36 | NUR ---
MS RN PATIENT CAME BACK FROM CLOSED REDUCTION SURGERY ACCOMPANIED BY 2 NURSES VIA BED. AWAKE, ALERT, ORIENTED X4. VERBALLY RESPONSIVE, ABLE TO MAKE NEEDS KNOWN. BREATHING EVEN AND NON-LABORED. DENIES PAIN OR DISCOMFORT AT THIS TIME. LEFT UPPER CHEST IV NOTED, PATENT, INTACT. ABDOMEN SOFT, NON DISTENDED. NO BLEEDING ON THE SURGERY SITE, NO S/S OF INFECTION, NO DRAINAGE. ABDUCTOR PILLOW NOTED BETWEEN THE LEGS. ALL NEEDS AND CARE ATTENDED PROMPTLY. CALL LIGHT WITHIN EASY REACH.
[2020-07-02] MEDS: MORPHINE SULFATE INJ 2 MG/ML DISP.SYRIN IV PRN (17:26)
--- NOTE | 2020-07-02 18:57 | NUR ---
MS CLOSING NOTES RN PATIENT IN BED, AWAKE, ALERT, ORIENTED X4. ABLE TO MAKE NEEDS KNOWN, VERBALLY RESPONSIVE. NO COMPLAINT OF PAIN OR DISCOMFORT AT THIS TIME. NO S/S OF RESPIRATORY DISTRESS. ALL DUE MEDS ARE GIVEN ORDERED, NO ADR NOTED, TOLERATED WELL. KEPT CLEAN AND DRY. ABDUCTOR PILLOW IN PLACE AT ALL TIMES. ALL NEEDS AND CARE ATTENDED PROMPTLY. CALL LIGHT WITHIN EASY REACH.
--- NOTE | 2020-07-02 20:00 | NUR ---
ms stephon initial notes received report from am nurse and seen pt in bed awake and alert watching TV at this time, not in any acute distress noted. Pt refused to have IVF to be infused instead he's saying just started león. Pt also asking for his pain medication and other meds together. I told him i will check whats the time of other med and I will let him know. Dressing dry and intact. kept him warm and comfortable at all times. will continue monitoring. place call light at reach.
[2020-07-02] MEDS: TRAZODONE 50 MG TABLET PO SCH (21:04)
[2020-07-02] MEDS: ALPRAZOLAM 1 MG TABLET PO PRN (21:05)
[2020-07-02] MEDS: HYDROCODONE/APAP 10/325MG TABLET PO PRN (21:05)
[2020-07-02] MEDS: ZOLPIDEM TARTRATE 5 MG TABLET PO PRN (21:05)
--- NOTE | 2020-07-02 21:05 | NUR ---
ms BRYSON notes talked to the patient that i can give his pain medication and his Xanax but his Ambien and Trazadone i will give it by 22:00. Pt started screaming at me and insisted that he wants its all together even I explained to him that possible side effect and saying I took everything in once and I'll be fine. Medication administered and Charge nurse aware. pt also refused to have his blood sugar checked and saying do it león. kept him warm and comfortable at all times. will continue monitoring. call light at reach.
--- NOTE | 2020-07-03 | NUR ---
ms stephon notes Patient sleeping at this time without any distress noted. Breathing even and unlabored. kept him warm and comfortable at all times. will continue monitoring. call light at reach.
--- NOTE | 2020-07-03 06:57 | NUR ---
MS PLUMBING ENGINEERING DRAFTSPERSON CLOSING NOTES PT REMAIN SLEEPING BUT AROUSE EASILY. PATIENT REFUSED TO HAVE BLOOD DRAW EVEN WE EXPLAINED TO HIM WHY HE NEEDS IT, HE ALSO REFUSED TO DO BLOOD TEST WELL. IVF STILL NOT INFUSING PER PT REQUEST. SLEPT WELL AND STABLE THROUGHOUT THE NIGHT .KEPT HIM WARM AND COMFORTABLE AT ALL TIMES. WILL ENDORSE TO AM NURSE FOR CONTINUITY OF CARE. PLACE CALL LIGHT AT REACH.
--- NOTE | 2020-07-03 07:45 | NUR ---
MS RN OPENING NOTES PATIENT IN BED, ASLEEP BUT EASILY AROUSABLE. NO MANIFESTATION OF PAIN OR DISCOMFORT. BREATHING EVEN AND NON-LABORED. LEFT UPPER ARM IV NOTED, NO S/S OF INFILTRATION, PATENT, INTACT. SAFETY MEASURES IN PLACE: BED IN LOWEST LOCKED WITH SIDERAILS UP. KEPT CLEAN AND DRY. MABLE LIGHT WITHIN EASY REACH.
[2020-07-03] MEDS: BLOOD SUGAR DIAGNOSTIC 1 EACH STRIP IN SCH ×5 (07:56→22:21)
[2020-07-03 08:00] VITALS: BP_SYST 101; BP_SYST 162; BP_DIAS 59; BP_DIAS 95
[2020-07-03 08:06] LABS: *SPE A/G RATIO 0.5 (0.7-1.7); *SPE ALBUMIN 2.5 g/dL (2.9-4.4); *SPE ALPHA-1-GLOBULIN 0.3 g/dL (0.0-0.4); *SPE ALPHA-2-GLOBULIN 0.8 g/dL (0.4-1.0); *SPE BETA GLOBULIN 1.2 g/dL (0.7-1.3); *SPE GLOBULIN, TOTAL 4.7 g/dL (2.2-3.9); *SPE M-SPIKE Not Observed g/dL (Not Observed); *SPEGAMMA GLOBULIN 2.4 g/dL (0.4-1.8)
[2020-07-03] MEDS: MONTELUKAST SODIUM (10MG) 10 MG TABLET PO SCH (08:07)
[2020-07-03] MEDS: PANTOPRAZOLE 40 MG TABLET.DR PO SCH (08:07)
[2020-07-03] MEDS: ENOXAPARIN SODIUM 40 MG/0.4 ML DISP.SYRIN SQ SCH (08:18)
[2020-07-03] MEDS: HYDROGEL DRESSING 90 GM TUBE TP SCH (08:18)
[2020-07-03] MEDS: HYDROCODONE/APAP 10/325MG TABLET PO PRN ×3 (08:30→20:36)
--- NOTE | 2020-07-03 09:00 | NUR ---
ms rn patient still sleeping at this time, due meds given.
--- NOTE | 2020-07-03 09:30 | NUR ---
ms damon was seen by jann espinosa w/orders made and carried out.
[2020-07-03] MEDS: INSULIN REGULAR, HUMAN 100 UNIT/ML 3 ML VIAL SQ PRN ×3 (13:04→22:28)
--- NOTE | 2020-07-03 14:00 | NUR ---
ms rn patient went to the bathroom w/ physical therapy, went back to bed and noted to have slight bleeding to surgical site and has 2.5 cm opening, picture taken and notified Fidel espinosa w/order made and carried out.
[2020-07-03] MEDS: MORPHINE SULFATE INJ 2 MG/ML DISP.SYRIN IV PRN ×2 (14:26→17:02)
[2020-07-03 16:00] VITALS: BP 136/76
--- NOTE | 2020-07-03 16:00 | NUR ---
ms rn hip xray done w/ negative result, open wound covered w/ mepilex, was able to take picture at sacral wound also,patient has been refusing since admission w/ treatment done, wound eval ordered
[2020-07-03] MEDS: MAGNESIUM HYDROXIDE 30 ML UDC PO PRN (17:26)
--- NOTE | 2020-07-03 17:34 | NUR ---
ms rn on bed, no distress noted,all needs attended.
--- NOTE | 2020-07-03 18:57 | NUR ---
MS RN CLOSING NOTES PATIENT IN BED, ASLEEP BUT EASILY AROUSABLE. NO SOB NOTED. LEFT UPPER ARM IV INTACT, NO S/S OF INFILTRATION. ALL DUE MEDS ARE GIVEN ORDERED, NO ADR NOTED, TOLERATED WELL. WOUND TREATMENT DONE ORDERED. TURN AND REPOSITION. KEPT CLEAN AND DRY. SAFETY MEASURES IN PLACE: ARTUR IN LOWEST LOCKED POSITION. ALL NEEDS AND CARE PROVIDED PROMPTLY. CALL LIGHT WITHIN EASY REACH.
[2020-07-03 20:00] VITALS: BP 129/80
--- NOTE | 2020-07-03 20:16 | NUR ---
ms screen room operator initiial notes c/o left hip pain , norco tablet given as ordered. No signs of any distress noted. Encourage pt to turn himself as he can or call us if he needs some help. pt requested to have his night medication at 9 pm. kept him warm and comfortable at all times. place call light at reach. will continue monitoring.
[2020-07-03] MEDS: TRAZODONE 50 MG TABLET PO SCH (21:27)
[2020-07-03] MEDS: ZOLPIDEM TARTRATE 5 MG TABLET PO PRN (21:28)
[2020-07-03] MEDS: ALPRAZOLAM 1 MG TABLET PO PRN (21:32)
--- NOTE | 2020-07-03 21:39 | NUR ---
ms stephon notes Trazadone 400 mg po given as ordered as well as his Ambien and Xanax po per patient requested. he still refusing his blood sugar checked for tonight and wants to do it in the morning. Patient stated that he wants to sleep now. he still the same with attitude screaming when you can't give on time what he wants even you explained to him that you have emergency that needs to prioritize first.
[2020-07-03 22:29] LABS: BASOPHILS # (AUTO) 0.1 /CMM (0.0-0.2); BASOPHILS % (AUTO) 0.9 % (0.0-2.0); EOSINOPHILS % (AUTO) 3.9 % (0.0-6.0); HEMATOCRIT 35 % (39-51); LYMPHOCYTES # (AUTO) 1.1 /CMM (0.8-4.8); LYMPHOCYTES % (AUTO) 18.5 % (20.0-44.0); MEAN CORPUSCULAR HGB CONC 34 g/dl (31.0-36.0); MEAN CORPUSCULAR VOLUME 93 fL (80-96); MONOCYTES # (AUTO) 0.5 /CMM (0.1-1.30); NEUTROPHILS % (AUTO) 67.7 % (43.0-81.0); PLATELET COUNT (AUTO) 106 /CMM (150-450); RED BLOOD CELL COUNT(AUTO) 3.77 MIL/uL (4.5-6.0); WHITE BLOOD COUNT (AUTO) 5.9 K/uL (4.3-11.0)
--- NOTE | 2020-07-03 22:30 | NUR ---
ms stephon notes checked the patient with denture laboratory technician maybe he change his mood now if its ok to check his blood sugar and to have blood draw for some blood test that he refused earlier. pt seen watching tv and seems calmed now. blood draw done by denture laboratory technician and I'll checked the blood sugar and came out 266. and 6 units of insulin mai sq as ordered .kept him warm and comfortable at all times. will continue monitoring. place call light at reach.
[2020-07-03 22:47] LABS: CALCIUM, SERUM 8.2 mg/dL (8.5-10.1); CREATININE 0.7 mg/dL (0.6-1.3); POTASSIUM 3.9 mmol/L (3.5-5.1)
--- NOTE | 2020-07-04 00:53 | NUR ---
MS DINING ROOM HOSTESS NOTES PT SLEEPING COMFORTABLY IN BED, BREATHING EVEN AND UNLABORED NOT IN ANY DISTRESS NOTED. KEPT HIM WARM AND COMFORTABLE AT ALL TIMES. WILL CONTINUE MONITORING. CALL LIGHT AT REACH.
[2020-07-04 06:12] LABS: BASOPHILS % (AUTO) 0.4 % (0.0-2.0); EOSINOPHILS % (AUTO) 6.7 % (0.0-6.0); HEMATOCRIT 36 % (39-51); HEMOGLOBIN 12.3 g/dL (13.5-17.5); LYMPHOCYTES # (AUTO) 1.3 /CMM (0.8-4.8); LYMPHOCYTES % (AUTO) 25.8 % (20.0-44.0); MEAN CORPUSCULAR HGB CONC 35 g/dl (31.0-36.0); MEAN CORPUSCULAR VOLUME 94 fL (80-96); MONOCYTES # (AUTO) 0.5 /CMM (0.1-1.30); MONOCYTES % (AUTO) 10.1 % (2.0-12.0); NEUTROPHILS # (AUTO) 2.9 /CMM (1.8-8.9); PLATELET COUNT (AUTO) 102 /CMM (150-450); WHITE BLOOD COUNT (AUTO) 5.1 K/uL (4.3-11.0)
[2020-07-04 06:43] LABS: CALCIUM, SERUM 8.3 mg/dL (8.5-10.1); CREATININE 0.6 mg/dL (0.6-1.3); POTASSIUM 3.8 mmol/L (3.5-5.1)
--- NOTE | 2020-07-04 06:55 | NUR ---
MS EXPEDITIONARY FIGHTING VEHICLE CREWMAN CLOSING NOTES Pt . remains sleeping but arouse easily , refused to have sponge bath and wound care and blood sugar check. as well and saying "do it after breakfast please ,I want to sleep more". stable throughout the night after he got his medication. kept him warm and comfortable at all times. will endorse to am nurse for continuity of care. place call light at reach.
[2020-07-04] MEDS: BLOOD SUGAR DIAGNOSTIC 1 EACH STRIP IN SCH ×2 (07:30→11:42)
--- NOTE | 2020-07-04 07:47 | NUR ---
MS RN OPENING NOTES RECEIVED PATIENT IN BED, ASLEEP. PATIENT ON ROOM AIR; BREATHING EVEN AND UNLABORED; NO SOB PRESENT AT THIS TIME. NO S/S OF PAIN SUCH FACIAL GRIMACING, MOANING OR GUARDING NOTED. IV ACCESS AT CRISTOBAL G # 20 PRESENT AND INTACT. SAFETY PRECAUTIONS IN PLACE; BED IN LOW POSITION AND UP, RAILS UP X2, CALL LIGHT WITHIN REACH. WILL CONTINUE TO MONITOR PATIENT.
--- NOTE | 2020-07-04 07:59 | NUR ---
MS RN NOTES PATIENT REFUSED ACCU CHECK. HE WANTS HIS ACCU-CHECK AFTER BREAKFAST.
[2020-07-04] MEDS: MONTELUKAST SODIUM (10MG) 10 MG TABLET PO SCH (08:16)
[2020-07-04] MEDS: PANTOPRAZOLE 40 MG TABLET.DR PO SCH (08:16)
[2020-07-04] MEDS: HYDROGEL DRESSING 90 GM TUBE TP SCH (08:17)
[2020-07-04] MEDS: ENOXAPARIN SODIUM 40 MG/0.4 ML DISP.SYRIN SQ SCH (08:18)
[2020-07-04 09:00] VITALS: BP 128/96
[2020-07-04] MEDS: MORPHINE SULFATE INJ 2 MG/ML DISP.SYRIN IV PRN ×2 (09:34→13:51)
[2020-07-04] MEDS: INSULIN REGULAR, HUMAN 100 UNIT/ML 3 ML VIAL SQ PRN (11:47)
[2020-07-04] MEDS: MAGNESIUM HYDROXIDE 30 ML UDC PO PRN (12:16)
[2020-07-04] MEDS: HYDROCODONE/APAP 10/325MG TABLET PO PRN (12:16)
--- NOTE | 2020-07-04 12:19 | NUR ---
PATIENT COMPLAINED OF PAIN IN THE RIGHT HIP AREA 10/04. GAVE PRN MEDICATION NORCO ORDERED. WILL REASSESS
--- NOTE | 2020-07-04 15:43 | NUR ---
MS CUSTOMER MARKETING MANAGER NOTE RECEIVED ORDER FOR DISCHARGE. PATIENT IS A/OX4; ABLE TO MAKE NEEDS KNOWN. ON ROOM AIR, TOLERATING WELL WITH NO SOB. NO S/SX OF DISTRESS. PATIENT IS ABLE TO AMBULATE WITH WALKER IV. REMOVED PATIENT TOLERATED WELL. SKIN NOTED WITH PRESSURE ULCER ON SACRUM AND L HIP SURGICAL SITE. DISCHARGE INSTRUCTIONS WERE GIVEN BOTH IN ORAL AND WRITTEN FORM. PATIENT WAS PICKED UP BY [facility] FOR [facility]. PATIENT LEFT IN STABLE CONDITION.
[2020-07-06] MEDS ORDERED: MORPHINE SULFATE INJ 4 MG/ML DISP.SYRIN ONE (16:32)
== END 2020-07-04 15:40 | DRG 500 ==
LOC: ER 12:48 → MED 16:10
PROVIDERS: ADMIT Nurse Practitioner Acute Care; ATTEND Nurse Practitioner Acute Care
PROC: 0KBP0ZZ Excision of Left Hip Muscle, Open Approach (ICD-10-PCS; principal; 2020-07-01)
PROC: 0KBN0ZZ Excision of Right Hip Muscle, Open Approach (ICD-10-PCS; 2020-07-02)
PROC: 0SWBXJZ Revision of Synthetic Substitute in Left Hip Joint, External Approach (ICD-10-PCS; 2020-07-02)
PROC: 0LN Tendons, Release (ICD-10-PCS; 2020-07-02)
DX: T84.021A Dislocation of internal left hip prosthesis, initial encounter (principal); L89.153 Pressure ulcer of sacral region, stage 3; E44.0 Moderate protein-calorie malnutrition; Y79.2 Prosthetic and other implants, materials and accessory orthopedic devices associated with adverse incidents; E11.9 Type 2 diabetes mellitus without complications; I10 Essential (primary) hypertension; J44.9 Chronic obstructive pulmonary disease, unspecified; R53.1 Weakness; E88.09 Other disorders of plasma-protein metabolism, not elsewhere classified; R74.01 Elevation of levels of liver transaminase levels; K80.20 Calculus of gallbladder without cholecystitis without obstruction; Z88.0 Allergy status to penicillin; Y84.8 Other medical procedures as the cause of abnormal reaction of the patient, or of later complication, without mention of misadventure at the time of the procedure; Z68.24 Body mass index [BMI] 24.0-24.9, adult; E78.5 Hyperlipidemia, unspecified; F17.210 Nicotine dependence, cigarettes, uncomplicated; N28.1 Cyst of kidney, acquired; N40.0 Benign prostatic hyperplasia without lower urinary tract symptoms; R29.6 Repeated falls; W18.30XA Fall on same level, unspecified, initial encounter; Y93.9 Activity, unspecified; Z96.641 Presence of right artificial hip joint; Z20.822 Contact with and (suspected) exposure to COVID-19; Z79.84 Long term (current) use of oral hypoglycemic drugs; Y92.009 Unspecified place in unspecified non-institutional (private) residence as the place of occurrence of the external cause
CPT/HCPCS: 36415; 71045-TC; 73020; 73502; 76700-TC; 80048-TC; 80053-TC; 80076-TC; 82550-TC; 82962-TC; 83690-TC; 83735-TC; 84100-TC; 84155; 84165; 85025-TC; 85730-TC; 86850-TC; 87081-TC; 97112-TC; 97530-TC; A6248; A6403; G0378; J1170; J1650; J1815; J2270; J2405; J2704; J3010; J3490; J7030; J7040

== ENCOUNTER 2020-07-06 16:14 | Emergency (ER) | payer MEDICARE, OTHER ==
[~2020-07-06] VITALS: Ht 167.6 cm; Wt 78.9 kg
[~2020-07-06 16:14] MED LIST changes: +DULA1.5P SQ; -GLIP5TAB13 PO; -LISI10TA29 PO; -METF-440 PO; +MONT10TA22 PO; -OXYC80TA PO; +OXYC80TA40 PO; -TAMS0.4C34 PO
[2020-07-06] MEDS ORDERED: BALS60OI TP (16:19)
[2020-07-06] MEDS ORDERED: MORPHINE SULFATE INJ 2 MG/ML DISP.SYRIN IM ONE (16:30)
[2020-07-06] MEDS ORDERED: PROPOFOL 20 ML IV ONE (17:18)
--- NOTE | 2020-07-06 17:25 | NUR ---
Patient awake alert orreinted for concious sedation left hip consented ,RT @ bedside crash cart .
[2020-07-06] MEDS: PROPOFOL 200 MG/20 ML VIAL IV ONE ×4 (17:26→17:38)
--- NOTE | 2020-07-06 18:07 | NUR ---
Patient awake alert pain left 11/04 vitals taken and filed continue to monitor
--- NOTE | 2020-07-06 18:44 | NUR ---
Patient awake alert non distress viatls taken and filed stable continue to monitor .
--- NOTE | 2020-07-06 18:54 | NUR ---
[facility] ETA 193
--- NOTE | 2020-07-06 19:03 | NUR ---
DC home intruction given to patient called [facility] report given to Ashley RICO .
--- NOTE | 2020-07-06 19:36 | NUR ---
REPORT GIVEN TO EMT, PT TRANSFERED BACK TO FACILITY.
[2020-07-06 19:41] VITALS: BP 142/68
== END 2020-07-06 19:43 ==
LOC: ER 16:16
DX: T84.021A Dislocation of internal left hip prosthesis, initial encounter (principal); I10 Essential (primary) hypertension; E11.9 Type 2 diabetes mellitus without complications; Z88.0 Allergy status to penicillin; Z79.899 Other long term (current) drug therapy
CPT/HCPCS: 27265; 72170; 73501; 96372; 99152; 99285; J2704; J7030 ×2; 73020; G0500

== ENCOUNTER 2020-07-08 21:31 | Emergency (ER) | payer MEDICARE, OTHER ==
[~2020-07-08] VITALS: Ht 177.8 cm; Wt 74.8 kg
[~2020-07-08 21:31] MED LIST changes: +BALS60OI TP
--- NOTE | 2020-07-08 21:35 | NUR ---
PT CORNELIA FROM [facility] C/O POSSIBLE L HIP DISLOCATION. PT STATES HE WAS SITTING IN WHEELCHAIR, TURNED, AND FELT HIP "POP OUT". PT HAS HISTORY OF MULTIPLE HIP DISLOCATIONS. PT AAOX4. RESPIRATIONS EVEN AND UNLABORED. VITAL SIGNS STABLE. NO ACUTE DISTRESS NOTED AT THIS TIME. PENDING MD KRAUSE
--- NOTE | 2020-07-08 22:20 | NUR ---
RADIOLOGY AT BEDSIDE FOR XRAY
--- NOTE | 2020-07-08 22:45 | NUR ---
IV INITIATED RAC 18G. LABS DRAWN FROM SITE. RETAIL MERCHANDISER AT BEDSIDE FOR COLLECTION. IV INTACT AND PATENT, PLACED ON SALINE LOCK
[2020-07-08] MEDS ORDERED: ONDANSETRON HCL/PF 4 MG/2 ML VIAL ONE (22:46)
[2020-07-08] MEDS ORDERED: MORPHINE SULFATE INJ 4 MG/ML DISP.SYRIN ONE (22:47)
[2020-07-08] MEDS ORDERED: PROPOFOL 20 ML IV ONE (22:47)
[2020-07-08 22:59] LABS: BASOPHILS # (AUTO) 0.1 /CMM (0.0-0.2); BASOPHILS % (AUTO) 0.7 % (0.0-2.0); HEMATOCRIT 37 % (39-51); HEMOGLOBIN 12.7 g/dL (13.5-17.5); LYMPHOCYTES # (AUTO) 1.2 /CMM (0.8-4.8); LYMPHOCYTES % (AUTO) 14.7 % (20.0-44.0); MEAN CORPUSCULAR HGB CONC 34 g/dl (31.0-36.0); MEAN CORPUSCULAR VOLUME 95 fL (80-96); MONOCYTES # (AUTO) 0.6 /CMM (0.1-1.30); MONOCYTES % (AUTO) 7.3 % (2.0-12.0); NEUTROPHILS # (AUTO) 6.1 /CMM (1.8-8.9); NEUTROPHILS % (AUTO) 73.3 % (43.0-81.0); PLATELET COUNT (AUTO) 102 /CMM (150-450); RED BLOOD CELL COUNT(AUTO) 3.93 MIL/uL (4.5-6.0); WHITE BLOOD COUNT (AUTO) 8.3 K/uL (4.3-11.0)
[2020-07-08] MEDS ORDERED: MORPHINE SULFATE INJ 2 MG/ML DISP.SYRIN IV ONE (23:00)
[2020-07-08] MEDS ORDERED: PROPOFOL 1,000 MG/100 ML BOTTLE IV ONE (23:00)
[2020-07-08] MEDS ORDERED: IV NS 0.9% 500 ML BAG IV ONE (23:00)
[2020-07-08] MEDS ORDERED: ONDANSETRON HCL/PF 4 MG/2 ML VIAL IVP ONE (23:00)
[2020-07-08 23:08] LABS: CREATININE 0.8 mg/dL (0.6-1.3); POTASSIUM 3.9 mmol/L (3.5-5.1)
[2020-07-08 23:13] LABS: ALBUMIN 2.9 g/dL (3.4-5.0); BILIRUBIN,DIRECT 0.2 mg/dL (0.0-0.2); BILIRUBIN,TOTAL 0.5 mg/dL (0.2-1.0)
--- NOTE | 2020-07-08 23:20 | NUR ---
COVID SWABS COLLECTED AND SENT TO LAB
--- NOTE | 2020-07-08 23:25 | NUR ---
DR. RENE, RT, TECH, AND RN AT BEDSIDE FOR L HIP REDUCTION WITH MODERATE SEDATION
--- NOTE | 2020-07-08 23:42 | NUR ---
rt called to pt bedside for standby during hip reduction. pt on 6l n/c with spo2 98% resting comfortably with no resp distress. pt placed on non rebreather post procedure to maintain 100% spo2. pt returned to n/c 6l once alert and oriented.
--- NOTE | 2020-07-08 23:43 | NUR ---
PT AWAKE, AAOX4. VITAL SIGNS STABLE. RESPIRATIONS EVEN AND UNLABORED. STILL ON CONTINUOUS CAR SEAT UPHOLSTERER AND PULSE OX, WILL CONTINUE TO MONITOR
--- NOTE | 2020-07-08 23:50 | NUR ---
[facility] ETA 75-90 MINUTES
--- NOTE | 2020-07-09 | NUR ---
SPOKE WITH ELIZABETH FROM [facility] TO INFORM PT WILL RETURN BACK TO FACILITY
--- NOTE | 2020-07-09 01:27 | NUR ---
REPORT GIVEN TO [facility] FOR TRANSPORTATION [facility]
[2020-07-09 01:29] VITALS: BP 132/87
[2020-07-18] MEDS ORDERED: ASCO500C17 PO (17:59)
[2020-07-18] MEDS ORDERED: MULT-447 PO (17:59)
[2020-07-18] MEDS ORDERED: ZINC220T4 PEG (17:59)
[2020-07-18] MEDS ORDERED: DULA1.5P SQ (17:59)
[2020-07-22] MEDS ORDERED: METF-440 PO (11:27)
== END 2020-07-09 01:30 ==
LOC: ER 21:35
DX: T84.021A Dislocation of internal left hip prosthesis, initial encounter (principal); Y79.2 Prosthetic and other implants, materials and accessory orthopedic devices associated with adverse incidents; Y92.129 Unspecified place in nursing home as the place of occurrence of the external cause; I10 Essential (primary) hypertension; E11.9 Type 2 diabetes mellitus without complications; Z79.899 Other long term (current) drug therapy; Z20.822 Contact with and (suspected) exposure to COVID-19
CPT/HCPCS: 27265; 36415; 73503 ×2; 80048; 80076; 85025; 85730; 87426; 96374; 96375; 99152; 99285; J2270; J2405; J2704; J7040; 73502; C9803; G0500; U0003

== ENCOUNTER 2020-07-09 20:11 | Emergency (ER) | payer MEDICARE, MEDICAID ==
[~2020-07-09] VITALS: Ht 177.8 cm; Wt 74.8 kg
--- NOTE | 2020-07-09 20:13 | NUR ---
PT CORNELIA FROM [facility] C/O POSSIBLE L HIP DISLOCATION. NOTED SHORTENING L LOWER EXT. PT STATES HE WAS SITTING IN WHEELCHAIR AND FELT "HIP POP OUT". PT RECENTLY SEEN AND DISCHARGED FROM [facility] ER YESTERDAY FOR SAME COMPLAINT, PT HAS HISTORY OF MULTIPLE HIP DISLOCATION. PT AAOX4. VITAL SIGNS STABLE. RESPIRATIONS EVEN AND UNLABORED. NO ACUTE DISTRESS NOTED AT THIS TIME. WILL CONTINUE TO MONITOR
--- NOTE | 2020-07-09 20:32 | NUR ---
RADIOLOGY AT BEDSIDE FOR XRAY
[2020-07-09] MEDS ORDERED: PROPOFOL 20 ML IV ONE (20:58)
[2020-07-09] MEDS ORDERED: PROPOFOL 200 MG/20 ML VIAL IV ONE (21:00)
--- NOTE | 2020-07-09 21:58 | NUR ---
CALLED [facility] ETA [phone]
--- NOTE | 2020-07-09 22:05 | NUR ---
[facility] ETA 0000 HOURS
[2020-07-09] MEDS ORDERED: MORPHINE SULFATE INJ 4 MG/ML DISP.SYRIN ONE (22:14)
[2020-07-09] MEDS ORDERED: ONDANSETRON HCL/PF 4 MG/2 ML VIAL ONE (22:15)
[2020-07-09] MEDS ORDERED: MORPHINE SULFATE INJ 2 MG/ML DISP.SYRIN IV ONE (22:30)
[2020-07-09] MEDS ORDERED: ONDANSETRON HCL/PF 4 MG/2 ML VIAL IV ONE (22:30)
--- NOTE | 2020-07-09 23:51 | NUR ---
REPORT GIVEN TO [facility] FOR TRANSPORTATION [facility]
[2020-07-09 23:53] VITALS: BP 110/67
== END 2020-07-09 23:53 | disposition home or self-care (01) ==
LOC: ER 20:11
DX: T84.021A Dislocation of internal left hip prosthesis, initial encounter (principal); I10 Essential (primary) hypertension; E11.9 Type 2 diabetes mellitus without complications; Z88.0 Allergy status to penicillin; Z79.899 Other long term (current) drug therapy
CPT/HCPCS: 27265; 73503 ×2; 96374; 96375; 99152; 99285; J2270; J2405; J2704; J7040; 73502; G0500

== ENCOUNTER 2020-07-12 20:55 | Emergency (ER) | payer MEDICARE, OTHER ==
[~2020-07-12] VITALS: Ht 172.7 cm; Wt 74.8 kg
--- NOTE | 2020-07-12 21:00 | NUR ---
PATIENT CAME TO ER BED 11 C/O LEFT HIP DISLOCATED. PATIENT IS BIB EMS FROM [facility] FOR DISLOCATED LEFT HIP W/ LEFT LEG MEDIALLY ROTATED W/ SHORTENING. IV RFA 18G STARTED. PATIENT IS AAOX4. NOS OB. BREATHING EVENLY AND UNLABORED ON ROOM AIR. CONNECTED TO THE HAND HARDENER.
[2020-07-12 21:32] LABS: BASOPHILS % (AUTO) 0.8 % (0.0-2.0); EOSINOPHILS % (AUTO) 3.9 % (0.0-6.0); HEMATOCRIT 37 % (39-51); HEMOGLOBIN 12.7 g/dL (13.5-17.5); LYMPHOCYTES # (AUTO) 1.1 /CMM (0.8-4.8); LYMPHOCYTES % (AUTO) 19.5 % (20.0-44.0); MEAN CORPUSCULAR HGB CONC 34 g/dl (31.0-36.0); MEAN CORPUSCULAR VOLUME 95 fL (80-96); MONOCYTES # (AUTO) 0.4 /CMM (0.1-1.30); MONOCYTES % (AUTO) 7.8 % (2.0-12.0); NEUTROPHILS # (AUTO) 3.7 /CMM (1.8-8.9); PLATELET COUNT (AUTO) 139 /CMM (150-450); RED BLOOD CELL COUNT(AUTO) 3.95 MIL/uL (4.5-6.0); WHITE BLOOD COUNT (AUTO) 5.5 K/uL (4.3-11.0)
[2020-07-12 21:39] LABS: CALCIUM, SERUM 8.7 mg/dL (8.5-10.1); CREATININE 0.8 mg/dL (0.6-1.3); POTASSIUM 4.4 mmol/L (3.5-5.1)
[2020-07-12] MEDS ORDERED: PROPOFOL 20 ML IV ONE (21:46)
[2020-07-12] MEDS ORDERED: PROPOFOL 200 MG/20 ML VIAL IV ONE (22:00)
--- NOTE | 2020-07-12 22:02 | NUR ---
LEFT HIP REDUCED.
--- NOTE | 2020-07-12 22:13 | NUR ---
[facility] called for transport. ETA 60 minutes.
[2020-07-12 22:16] VITALS: BP 119/74
[2020-07-12] MEDS ORDERED: HYDROCODONE/APAP 5/325MG TABLET PO ONE (23:30)
--- NOTE | 2020-07-12 23:45 | NUR ---
REPORT GIVEN TO HUMA RICO AT [facility].
--- NOTE | 2020-07-12 23:46 | NUR ---
REPORT GIVEN TO TRANSPORT TEAM FOR [facility]. AND TRANSFERRING RESPONSIBILITIES.
== END 2020-07-13 00:08 ==
LOC: ER 20:55
DX: T84.021A Dislocation of internal left hip prosthesis, initial encounter (principal); I10 Essential (primary) hypertension; E11.9 Type 2 diabetes mellitus without complications; Z88.0 Allergy status to penicillin; Z79.899 Other long term (current) drug therapy
CPT/HCPCS: 27265; 36415; 72170; 73501; 80048; 85025; 85610; 85730; 99152; 99285; J2704; J7030; 73020; G0500

== ENCOUNTER 2020-08-23 16:53 | Emergency (ER) | payer MEDICARE, OTHER ==
[~2020-08-23] VITALS: Ht 170.2 cm; Wt 73.5 kg
[~2020-08-23 16:53] MED LIST changes: -ALPR2TAB7 PO; +ASCO500C17 PO; -BALS60OI TP; +METF-440 PO; +MULT-447 PO; +ZINC220T4 PO
--- NOTE | 2020-08-23 17:38 | NUR ---
[id number] FOR POSSIBLE L HIP DISLOCATION S/P GLF 1 HOUR AGO 100 MCG FENTANYL GIVEN IVP COAL CUTTER. PT AAOX4, VSS. RR EVEN & UNLABORED. DENIES HEAD INJURY, CP, SOB, DIZZINESS, N/V AT THIS TIME. PT SEEN & EVAL'D BY DR. DUNLAP. WILL CONT TO MONITOR.
[2020-08-23 18:22] LABS: BASOPHILS % (AUTO) 0.6 % (0.0-2.0); HEMATOCRIT 31 % (39-51); HEMOGLOBIN 10.2 g/dL (13.5-17.5); LYMPHOCYTES % (AUTO) 17.2 % (20.0-44.0); MEAN CORPUSCULAR HGB CONC 33 g/dl (31.0-36.0); MEAN CORPUSCULAR VOLUME 91 fL (80-96); MONOCYTES # (AUTO) 0.6 /CMM (0.1-1.30); MONOCYTES % (AUTO) 9.8 % (2.0-12.0); NEUTROPHILS # (AUTO) 3.9 /CMM (1.8-8.9); NEUTROPHILS % (AUTO) 69.4 % (43.0-81.0); PLATELET COUNT (AUTO) 169 /CMM (150-450); RED BLOOD CELL COUNT(AUTO) 3.38 MIL/uL (4.5-6.0); WHITE BLOOD COUNT (AUTO) 5.7 K/uL (4.3-11.0)
--- NOTE | 2020-08-23 18:26 | NUR ---
kenroytPaged Dr. Luther for consult
[2020-08-23 18:33] LABS: ALCOHOL, BLOOD < 3 mg/dL (0-0); CALCIUM, SERUM 8.3 mg/dL (8.5-10.1); CARBON DIOXIDE 29 mmol/L (21-32); CHLORIDE 105 mmol/L (98-107); CREATININE 0.7 mg/dL (0.6-1.3); GLUCOSE 131 mg/dL (74-106); POTASSIUM 3.1 mmol/L (3.5-5.1); SODIUM SERUM 141 mmol/L (136-145); UREA NITROGEN, BLOOD 13 mg/dL (7-18)
[2020-08-23 18:36] LABS: CREATINE KINASE, TOTAL 76 U/L (39-308)
[2020-08-23] MEDS ORDERED: POTASSIUM CHLORIDE 20 MEQ TAB.PRT.SR PO ONE ×2 (19:00→19:24)
--- NOTE | 2020-08-23 20:13 | NUR ---
DR GREWAL REPAGED
--- NOTE | 2020-08-23 20:41 | NUR ---
DR CLARKE PAGED PER DR DUNLAP
[2020-08-23] MEDS ORDERED: PROPOFOL 20 ML IV ONE (20:46)
[2020-08-23] MEDS ORDERED: FENTANYL PF 100MCG/2ML AMPUL ONE (21:15)
--- NOTE | 2020-08-23 21:40 | NUR ---
DR. DUNLAP UNABLE TO REDUCE LT HIP. PT SLEEPY, EASILY AWAKEN BY VERBAL STIMULI. RR EVEN & UNLABORED. DENIES CP, SOB, DIZZINESS, N/V AT THIS TIME. ON TELE, SR. WILL CONT TO MONITOR.
--- NOTE | 2020-08-23 21:49 | NUR ---
[facility] CALLED FOR TRANSFER TO [facility].
--- NOTE | 2020-08-23 22:33 | NUR ---
CALL BACK FROM [facility]. NO BEDS AVAILABLE.
--- NOTE | 2020-08-23 22:41 | NUR ---
PT ASLEEP, EASILY AWAKEN BY VERBAL STIMULI. DENIES CP, SOB, DIZZINESS, N/V AT THIS TIME. WILL CONT TO MONITOR.
[2020-08-23] MEDS ORDERED: FENTANYL PF 100MCG/2ML AMPUL IV ONE (23:00)
[2020-08-23] MEDS ORDERED: PROPOFOL 200 MG/20 ML VIAL IV ONE (23:00)
[2020-08-23] MEDS ORDERED: ONDANSETRON HCL/PF 4 MG/2 ML VIAL ONE (23:53)
[2020-08-23] MEDS ORDERED: MORPHINE SULFATE INJ 4 MG/ML DISP.SYRIN ONE (23:54)
--- NOTE | 2020-08-23 23:54 | NUR ---
PT C/O L HIP PAIN 09/04. ER MD MADE AWARE WITH ORDERS RECEIVED. WILL CARRY OUT ORDERS.
[2020-08-24] MEDS ORDERED: MORPHINE SULFATE INJ 2 MG/ML DISP.SYRIN IV ONE
[2020-08-24] MEDS ORDERED: ONDANSETRON HCL/PF 4 MG/2 ML VIAL IV ONE
--- NOTE | 2020-08-24 00:02 | NUR ---
PT MEDICATED ORDERED.
[2020-08-24] MEDS ORDERED: HYDROMORPHONE 1 MG/1 ML DISP.SYRIN ONE ×2 (03:47→09:51)
[2020-08-24] MEDS ORDERED: IV NS 0.9% 1,000 ML BAG IV ONE (04:00)
[2020-08-24] MEDS ORDERED: HYDROMORPHONE 1 MG/1 ML DISP.SYRIN IV ONE ×2 (04:00→09:30)
[2020-08-24] MEDS ORDERED: LORAZEPAM INJ 2 MG/ML VIAL ONE (04:59)
[2020-08-24] MEDS ORDERED: LORAZEPAM INJ 2 MG/ML VIAL IV ONE (05:00)
--- NOTE | 2020-08-24 07:39 | NUR ---
[facility] called. No bed currently available
--- NOTE | 2020-08-24 10:18 | NUR ---
Pt accepted to [facility] by Dr. Huang
--- NOTE | 2020-08-24 11:32 | NUR ---
GOING TO [facility] ROOM 1510-1 CALL [phone] IRELAND.
--- NOTE | 2020-08-24 11:35 | NUR ---
CALLED TRAN[facility] ETA 30 MINS.
--- NOTE | 2020-08-24 11:54 | NUR ---
REPORT GIVEN TO NURSE ROSS
--- NOTE | 2020-08-24 12:21 | NUR ---
THE PATIENT IS DISCHARGED GOING TO [facility]. THE PATIENT LEFT ER IN STABLE CONDITION VIA ARRANGED TRANSPO.
[2020-08-24 12:22] VITALS: BP 113/72
== END 2020-08-24 12:22 | disposition short-term general hospital (02) ==
LOC: ER 16:53
DX: T84.021A Dislocation of internal left hip prosthesis, initial encounter (principal); I10 Essential (primary) hypertension; E11.9 Type 2 diabetes mellitus without complications; Z79.899 Other long term (current) drug therapy; Z79.84 Long term (current) use of oral hypoglycemic drugs; Z88.0 Allergy status to penicillin; Z20.822 Contact with and (suspected) exposure to COVID-19
CPT/HCPCS: 27265; 36415; 71045; 73501; 80048; 80320; 82550; 85025; 85730; 86850; 87426; 96361; 96374; 96375; 96376; 99152; 99285; J1170 ×2; J2060; J2270; J2405; J2704; J3010; J7030; 73020; C9803; G0480; G0500

== ENCOUNTER 2022-12-03 11:40 | Inpatient (IN) | payer MEDICARE, OTHER ==
[~2022-12-03] VITALS: Ht 177.8 cm; Wt 86.2 kg
[2022-12-03 12:42] LABS: BASOPHILS % (AUTO) 0.9 % (0.0-2.0); EOSINOPHILS # (AUTO) 0.2 K/uL (0.0-0.7); EOSINOPHILS % (AUTO) 3.5 % (0.0-6.0); HEMATOCRIT 41 % (39-51); HEMOGLOBIN 13.8 g/dL (13.5-17.5); LYMPHOCYTES # (AUTO) 1.3 K/uL (0.8-4.8); LYMPHOCYTES % (AUTO) 25.8 % (20.0-44.0); MEAN CORPUSCULAR HEMOGLOBIN 32 PG (26.0-33.0); MEAN CORPUSCULAR HGB CONC 34 g/dl (31.0-36.0); MEAN CORPUSCULAR VOLUME 94 fL (80-96); MONOCYTES # (AUTO) 0.4 K/uL (0.1-1.30); MONOCYTES % (AUTO) 9.1 % (2.0-12.0); NEUTROPHILS % (AUTO) 60.7 % (43.0-81.0); PLATELET COUNT (AUTO) 76 K/uL (150-450); RED BLOOD CELL COUNT(AUTO) 4.36 MIL/uL (4.5-6.0); RED CELL DISTRIBUTION WIDTH 13.3 % (11.5-15.0); WHITE BLOOD COUNT (AUTO) 4.9 K/uL (4.3-11.0)
[2022-12-03 12:56] LABS: INR 0.98 (0.91-1.10); PARTIAL THROMBOPLASTIN TIME 27.2 SEC (24.3-34.3); PROTHROMBIN TIME 10.3 SECS (9.2-11.1)
[2022-12-03 12:58] LABS: CALCIUM, SERUM 8.8 mg/dL (8.5-10.1); CREATININE 0.8 mg/dL (0.6-1.3); POTASSIUM 4.1 mmol/L (3.5-5.1)
[2022-12-03 13:04] LABS: BILIRUBIN,DIRECT 0.1 mg/dL (0.0-0.2); BILIRUBIN,TOTAL 0.4 mg/dL (0.2-1.0)
[2022-12-03 13:20] LABS: PLATELET ESTIMATE DECREASED
[2022-12-03] MEDS ORDERED: VANCOMYCIN 1 GM in IV D5W 250 ML IV ONE (14:00)
[2022-12-03] MEDS ORDERED: MEROPENEM 1,000 MG in IV NS 0.9% 100 ML IV ONE (14:00)
[2022-12-03] MEDS ORDERED: ALPR0.5T8 PO (14:23)
[2022-12-03] MEDS ORDERED: TRAZ150T75 PO (14:23)
[2022-12-03] MEDS ORDERED: FERR325T23 PO (14:23)
[2022-12-03] MEDS ORDERED: FOLI0.8T3 PO (14:23)
[2022-12-03] MEDS ORDERED: CYCL5TAB PO (14:23)
[2022-12-03] MEDS ORDERED: SERT25TA PO (14:23)
[2022-12-03] MEDS ORDERED: L. A1TAB14 PO (14:23)
[2022-12-03] MEDS ORDERED: NALO4SPR NS (14:23)
[2022-12-03] MEDS ORDERED: LORA-259 PO (14:23)
[2022-12-03] MEDS ORDERED: PREG75CA PO (14:23)
[2022-12-03] MEDS ORDERED: HYDR-3980 PO (14:23)
[2022-12-03] MEDS ORDERED: MOUNJARO SQ (14:23)
[2022-12-03] MEDS ORDERED: FLUT1BLS IH (14:23)
[2022-12-03] MEDS ORDERED: PANT40TA49 PO (14:23)
[2022-12-03] MEDS ORDERED: ASCO-340 PO (14:23)
[2022-12-03] MEDS ORDERED: TEMA30CA PO (14:23)
[2022-12-03] MEDS ORDERED: DOXY-326 PO (14:23)
[2022-12-03] MEDS ORDERED: MORP60TA4 PO (14:23)
[2022-12-03] MEDS ORDERED: MULT-1094 PO (14:23)
[2022-12-03] MEDS ORDERED: DEXTROSE 50%-WATER 50 ML DISP.SYRIN IV PRN (15:30)
[2022-12-03] MEDS ORDERED: MAG HYDROX/AL HYDROX/SIMETH 30 ML UDC PO PRN (15:30)
[2022-12-03] MEDS ORDERED: LORAZEPAM 1 MG TABLET PO PRN (15:30)
[2022-12-03] MEDS ORDERED: ZOLPIDEM TARTRATE 5 MG TABLET PO PRN (15:30)
[2022-12-03] MEDS ORDERED: Z GUARD REMEDY 4 OZ OINT TP PRN (15:30)
[2022-12-03] MEDS ORDERED: ONDANSETRON HCL/PF 4 MG/2 ML VIAL IVP PRN (15:30)
[2022-12-03] MEDS ORDERED: MAGNESIUM HYDROXIDE 30 ML UDC PO PRN (15:30)
[2022-12-03] MEDS ORDERED: ACETAMINOPHEN 325 MG TABLET PO PRN (15:30)
[2022-12-03] MEDS ORDERED: CYCLOBENZAPRINE 10 MG TABLET PO PRN (16:30)
[2022-12-03] MEDS: ACIDOPHILUS/BULGARICUS 1 EACH TAB.CHEW PO SCH (17:29)
[2022-12-03] MEDS: ALPRAZOLAM 0.5 MG TABLET PO SCH (17:29)
[2022-12-03] MEDS: HYDROCODONE/APAP 10/325MG TABLET PO PRN (17:30)
[2022-12-03] MEDS: BLOOD SUGAR DIAGNOSTIC 1 EACH STRIP IN SCH ×2 (17:32→21:27)
[2022-12-03] MEDS: INSULIN REGULAR, HUMAN 100 UNIT/ML 3 ML VIAL SQ PRN ×2 (17:38→21:28)
[2022-12-03] MEDS: IV NS 0.9% 1,000 ML IV PRN (17:39)
[2022-12-03] MEDS: ALBUTEROL FS 2.5 MG/0.5 ML VIAL.NEB NEB SCH (19:30)
[2022-12-03] MEDS: BUDESONIDE RESPULE INH 0.5 MG/2 ML AMPUL.NEB NEB SCH (19:30)
[2022-12-03] MEDS: MORPHINE SULFATE INJ 2 MG/ML DISP.SYRIN IV PRN (20:57)
[2022-12-03] MEDS: TEMAZEPAM 15 MG CAPSULE PO SCH (21:18)
[2022-12-03] MEDS: TRAZODONE 50 MG TABLET PO SCH (21:19)
[2022-12-03] MEDS: PREGABALIN 25 MG CAPSULE PO SCH (21:27)
[2022-12-03] MEDS: MEROPENEM 1 G in IV NS 0.9% 100 ML IV SCH (21:28)
[2022-12-03] MEDS: HYDROMORPHONE 1 MG/1 ML DISP.SYRIN IV PRN (23:39)
[2022-12-04] VITALS: BP 132/78; TEMP 97.8; O2SAT 90
[2022-12-04] MEDS: ALBUTEROL FS 2.5 MG/0.5 ML VIAL.NEB NEB SCH ×4 (01:30→19:30)
[2022-12-04] MEDS ORDERED: VANCOMYCIN 1.25 GM in IV D5W 250 ML IV SCH (02:00)
[2022-12-04] MEDS: MEROPENEM 1 G in IV NS 0.9% 100 ML IV SCH ×3 (04:09→21:17)
[2022-12-04] MEDS: MORPHINE SULFATE INJ 2 MG/ML DISP.SYRIN IV PRN ×5 (04:47→23:48)
[2022-12-04] MEDS: HYDROMORPHONE 1 MG/1 ML DISP.SYRIN IV PRN ×2 (06:10→12:28)
[2022-12-04] MEDS: BLOOD SUGAR DIAGNOSTIC 1 EACH STRIP IN SCH ×4 (06:33→21:36)
[2022-12-04] MEDS: BUDESONIDE RESPULE INH 0.5 MG/2 ML AMPUL.NEB NEB SCH ×2 (07:30→19:30)
[2022-12-04 08:00] VITALS: BP 142/74; TEMP 98.8; O2SAT 90
[2022-12-04] MEDS: FERROUS SULFATE (325 MG) 325 MG/TAB TABLET PO SCH (09:10)
[2022-12-04] MEDS: FOLIC ACID 1 MG TABLET PO SCH (09:10)
[2022-12-04] MEDS: ASCORBIC ACID 500 MG TABLET PO SCH (09:10)
[2022-12-04] MEDS: ALPRAZOLAM 0.5 MG TABLET PO SCH ×2 (09:10→16:48)
[2022-12-04] MEDS: SERTRALINE HCL 25 MG TABLET PO SCH (09:10)
[2022-12-04] MEDS: ACIDOPHILUS/BULGARICUS 1 EACH TAB.CHEW PO SCH ×2 (09:17→16:48)
[2022-12-04] MEDS: MULTIVIT W/MINERALS 1 TAB TABLET PO SCH (09:17)
[2022-12-04] MEDS: PANTOPRAZOLE 40 MG TABLET.DR PO SCH (09:31)
[2022-12-04] MEDS: BACITRACIN ZINC OINT (15 GM) 15 GM TUBE TP SCH ×2 (09:32→16:49)
[2022-12-04] MEDS: HYDROCODONE/APAP 10/325MG TABLET PO PRN ×3 (11:03→23:14)
[2022-12-04] MEDS: INSULIN REGULAR, HUMAN 100 UNIT/ML 3 ML VIAL SQ PRN ×3 (11:13→21:34)
[2022-12-04] MEDS: VANCOMYCIN 1 GM in IV D5W 250 ML IV SCH (13:54)
[2022-12-04] MEDS: PROSOURCE / PROSTAT (PYXIS) 30 ML UDC PO SCH (16:04)
[2022-12-04] MEDS ORDERED: MORPHINE SULFATE SR 30 MG TABLET.SA PO SCH (17:00)
[2022-12-04] MEDS: MORPHINE SULFATE SR 15 MG TABLET.SA PO SCH (18:12)
[2022-12-04 20:00] VITALS: BP 160/90; TEMP 98.4; O2SAT 95
[2022-12-04] MEDS: TRAZODONE 50 MG TABLET PO SCH (21:08)
[2022-12-04] MEDS: TEMAZEPAM 15 MG CAPSULE PO SCH (21:08)
[2022-12-04] MEDS: PREGABALIN 25 MG CAPSULE PO SCH (21:08)
[2022-12-05] MEDS: ALBUTEROL FS 2.5 MG/0.5 ML VIAL.NEB NEB SCH ×4 (00:33→19:30)
[2022-12-05] MEDS: MORPHINE SULFATE SR 15 MG TABLET.SA PO SCH ×3 (01:21→17:55)
[2022-12-05] MEDS: VANCOMYCIN 1 GM in IV D5W 250 ML IV SCH ×3 (02:00→02:25)
[2022-12-05] MEDS: MORPHINE SULFATE INJ 2 MG/ML DISP.SYRIN IV PRN ×5 (03:45→20:17)
[2022-12-05] MEDS: HYDROCODONE/APAP 10/325MG TABLET PO PRN ×5 (04:35→21:57)
[2022-12-05] MEDS: MEROPENEM 1 G in IV NS 0.9% 100 ML IV SCH ×3 (04:36→21:42)
[2022-12-05 06:32] LABS: BASOPHILS % (AUTO) 0.8 % (0.0-2.0); EOSINOPHILS # (AUTO) 0.2 K/uL (0.0-0.7); EOSINOPHILS % (AUTO) 5.7 % (0.0-6.0); HEMATOCRIT 39 % (39-51); HEMOGLOBIN 13.3 g/dL (13.5-17.5); LYMPHOCYTES # (AUTO) 1.2 K/uL (0.8-4.8); LYMPHOCYTES % (AUTO) 30.9 % (20.0-44.0); MEAN CORPUSCULAR HEMOGLOBIN 32 PG (26.0-33.0); MEAN CORPUSCULAR HGB CONC 34 g/dl (31.0-36.0); MEAN CORPUSCULAR VOLUME 93 fL (80-96); MONOCYTES # (AUTO) 0.4 K/uL (0.1-1.30); MONOCYTES % (AUTO) 10.2 % (2.0-12.0); NEUTROPHILS % (AUTO) 52.4 % (43.0-81.0); PLATELET COUNT (AUTO) 70 K/uL (150-450); RED BLOOD CELL COUNT(AUTO) 4.17 MIL/uL (4.5-6.0); RED CELL DISTRIBUTION WIDTH 13.3 % (11.5-15.0); WHITE BLOOD COUNT (AUTO) 3.8 K/uL (4.3-11.0)
[2022-12-05 06:50] LABS: CALCIUM, SERUM 8.7 mg/dL (8.5-10.1); CREATININE 0.7 mg/dL (0.6-1.3); POTASSIUM 4.6 mmol/L (3.5-5.1)
[2022-12-05] MEDS: BLOOD SUGAR DIAGNOSTIC 1 EACH STRIP IN SCH ×4 (07:10→22:19)
[2022-12-05] MEDS: BUDESONIDE RESPULE INH 0.5 MG/2 ML AMPUL.NEB NEB SCH ×2 (07:30→19:30)
[2022-12-05 08:00] VITALS: BP 113/80; TEMP 97.9; O2SAT 94
[2022-12-05] MEDS: PROSOURCE / PROSTAT (PYXIS) 30 ML UDC PO SCH ×3 (08:00→16:02)
[2022-12-05] MEDS: SERTRALINE HCL 25 MG TABLET PO SCH (09:52)
[2022-12-05] MEDS: ASCORBIC ACID 500 MG TABLET PO SCH (09:52)
[2022-12-05] MEDS: PANTOPRAZOLE 40 MG TABLET.DR PO SCH (09:52)
[2022-12-05] MEDS: ACIDOPHILUS/BULGARICUS 1 EACH TAB.CHEW PO SCH ×2 (09:52→16:02)
[2022-12-05] MEDS: MULTIVIT W/MINERALS 1 TAB TABLET PO SCH (09:53)
[2022-12-05] MEDS: GLUCERNA SHAKE 237 ML CAN PO SCH (09:53)
[2022-12-05] MEDS: ALPRAZOLAM 0.5 MG TABLET PO SCH ×2 (09:53→16:02)
[2022-12-05] MEDS: FOLIC ACID 1 MG TABLET PO SCH (09:53)
[2022-12-05] MEDS: FERROUS SULFATE (325 MG) 325 MG/TAB TABLET PO SCH (09:53)
[2022-12-05] MEDS: BACITRACIN ZINC OINT (15 GM) 15 GM TUBE TP SCH ×2 (09:59→17:53)
[2022-12-05] MEDS: INSULIN REGULAR, HUMAN 100 UNIT/ML 3 ML VIAL SQ PRN ×3 (12:09→22:20)
[2022-12-05 12:17] LABS: ANISOCYTOSIS 1+; BASOPHILS % (MANUAL) 0 % (0.0-2.0); EOSINOPHILS % (MANUAL) 4 % (0-4); LYMPHOCYTES % (MANUAL) 24 % (16-48); MONOCYTES % (MANUAL) 11 % (0-11.0); NEUTROPHILS % (MANUAL) 61 (42-76); PLATELET ESTIMATE DECREASED
[2022-12-05] MEDS: VANCOMYCIN 1.25 GM in IV D5W 250 ML IV SCH (14:17)
[2022-12-05 16:00] VITALS: BP 150/80; TEMP 97.9; O2SAT 90
[2022-12-05 19:00] VITALS: BP 173/88; TEMP 98.9; O2SAT 97
[2022-12-05] MEDS: TEMAZEPAM 15 MG CAPSULE PO SCH (21:40)
[2022-12-05] MEDS: PREGABALIN 25 MG CAPSULE PO SCH (21:40)
[2022-12-05] MEDS: TRAZODONE 50 MG TABLET PO SCH (21:41)
[2022-12-06] MEDS: MORPHINE SULFATE INJ 2 MG/ML DISP.SYRIN IV PRN ×4 (00:34→18:48)
[2022-12-06] MEDS: ALBUTEROL FS 2.5 MG/0.5 ML VIAL.NEB NEB SCH ×4 (01:24→19:30)
[2022-12-06] MEDS: MORPHINE SULFATE SR 15 MG TABLET.SA PO SCH ×5 (02:00→22:56)
[2022-12-06] MEDS: VANCOMYCIN 1.25 GM in IV D5W 250 ML IV SCH ×2 (02:10→14:13)
[2022-12-06] MEDS: MEROPENEM 1 G in IV NS 0.9% 100 ML IV SCH ×3 (05:09→21:44)
[2022-12-06] MEDS: BLOOD SUGAR DIAGNOSTIC 1 EACH STRIP IN SCH ×3 (06:32→17:52)
[2022-12-06] MEDS: INSULIN REGULAR, HUMAN 100 UNIT/ML 3 ML VIAL SQ PRN ×3 (06:37→17:52)
[2022-12-06 06:51] LABS: BASOPHILS % (AUTO) 0.6 % (0.0-2.0); EOSINOPHILS # (AUTO) 0.2 K/uL (0.0-0.7); EOSINOPHILS % (AUTO) 5.2 % (0.0-6.0); HEMATOCRIT 39 % (39-51); HEMOGLOBIN 13.2 g/dL (13.5-17.5); LYMPHOCYTES # (AUTO) 1.2 K/uL (0.8-4.8); LYMPHOCYTES % (AUTO) 32.6 % (20.0-44.0); MEAN CORPUSCULAR HEMOGLOBIN 32 PG (26.0-33.0); MEAN CORPUSCULAR HGB CONC 34 g/dl (31.0-36.0); MEAN CORPUSCULAR VOLUME 93 fL (80-96); MONOCYTES # (AUTO) 0.4 K/uL (0.1-1.30); MONOCYTES % (AUTO) 11.5 % (2.0-12.0); NEUTROPHILS # (AUTO) 1.8 K/uL (1.8-8.9); NEUTROPHILS % (AUTO) 50.1 % (43.0-81.0); PLATELET COUNT (AUTO) 67 K/uL (150-450); RED BLOOD CELL COUNT(AUTO) 4.17 MIL/uL (4.5-6.0); WHITE BLOOD COUNT (AUTO) 3.5 K/uL (4.3-11.0)
[2022-12-06 07:29] LABS: CALCIUM, SERUM 8.9 mg/dL (8.5-10.1); CREATININE 0.7 mg/dL (0.6-1.3); POTASSIUM 4.2 mmol/L (3.5-5.1)
[2022-12-06] MEDS: BUDESONIDE RESPULE INH 0.5 MG/2 ML AMPUL.NEB NEB SCH ×2 (07:30→19:30)
[2022-12-06] MEDS: PROSOURCE / PROSTAT (PYXIS) 30 ML UDC PO SCH ×4 (08:00→16:58)
[2022-12-06] MEDS: ACIDOPHILUS/BULGARICUS 1 EACH TAB.CHEW PO SCH ×2 (08:43→16:40)
[2022-12-06] MEDS: MULTIVIT W/MINERALS 1 TAB TABLET PO SCH (08:43)
[2022-12-06] MEDS: ASCORBIC ACID 500 MG TABLET PO SCH (08:43)
[2022-12-06] MEDS: FOLIC ACID 1 MG TABLET PO SCH (08:43)
[2022-12-06] MEDS: SERTRALINE HCL 25 MG TABLET PO SCH (08:43)
[2022-12-06] MEDS: PANTOPRAZOLE 40 MG TABLET.DR PO SCH (08:43)
[2022-12-06] MEDS: FERROUS SULFATE (325 MG) 325 MG/TAB TABLET PO SCH (08:43)
[2022-12-06] MEDS: ALPRAZOLAM 0.5 MG TABLET PO SCH ×2 (08:43→16:40)
[2022-12-06] MEDS: BACITRACIN ZINC OINT (15 GM) 15 GM TUBE TP SCH ×2 (08:46→16:59)
[2022-12-06] MEDS: GLUCERNA SHAKE 237 ML CAN PO SCH (08:47)
[2022-12-06] MEDS: HYDROCODONE/APAP 10/325MG TABLET PO PRN ×3 (08:54→21:33)
[2022-12-06 09:36] VITALS: BP 158/82; TEMP 97.8; O2SAT 98
[2022-12-06 16:00] VITALS: BP 160/91; TEMP 98.7; O2SAT 98
[2022-12-06 20:00] VITALS: BP 137/71; TEMP 98; O2SAT 92
[2022-12-06] MEDS: PREGABALIN 25 MG CAPSULE PO SCH (21:30)
[2022-12-06] MEDS: TRAZODONE 50 MG TABLET PO SCH (22:29)
[2022-12-06] MEDS: TEMAZEPAM 15 MG CAPSULE PO SCH (22:29)
[2022-12-06 22:54] LABS: EOSINOPHILS % (MANUAL) 7 % (0-4); LYMPHOCYTES % (MANUAL) 31 % (16-48); MONOCYTES % (MANUAL) 10 % (0-11.0); NEUTROPHILS % (MANUAL) 52 (42-76); PLATELET ESTIMATE DECREASED
[2022-12-07] MEDS: ALBUTEROL FS 2.5 MG/0.5 ML VIAL.NEB NEB SCH ×4 (01:30→19:30)
[2022-12-07] MEDS: VANCOMYCIN 1.25 GM in IV D5W 250 ML IV SCH ×2 (02:00→14:42)
[2022-12-07] MEDS: BLOOD SUGAR DIAGNOSTIC 1 EACH STRIP IN SCH ×5 (02:05→22:00)
[2022-12-07] MEDS: HYDROCODONE/APAP 10/325MG TABLET PO PRN ×4 (02:11→16:10)
[2022-12-07] MEDS: MEROPENEM 1 G in IV NS 0.9% 100 ML IV SCH ×2 (05:00→12:20)
[2022-12-07] MEDS: MORPHINE SULFATE SR 15 MG TABLET.SA PO SCH ×2 (07:20→22:09)
[2022-12-07] MEDS: BUDESONIDE RESPULE INH 0.5 MG/2 ML AMPUL.NEB NEB SCH ×2 (07:30→19:30)
[2022-12-07 07:55] LABS: BASOPHILS % (AUTO) 0.7 % (0.0-2.0); EOSINOPHILS # (AUTO) 0.2 K/uL (0.0-0.7); EOSINOPHILS % (AUTO) 4.2 % (0.0-6.0); HEMATOCRIT 43 % (39-51); HEMOGLOBIN 14.5 g/dL (13.5-17.5); LYMPHOCYTES # (AUTO) 1.4 K/uL (0.8-4.8); LYMPHOCYTES % (AUTO) 30.8 % (20.0-44.0); MEAN CORPUSCULAR HEMOGLOBIN 32 PG (26.0-33.0); MEAN CORPUSCULAR HGB CONC 34 g/dl (31.0-36.0); MEAN CORPUSCULAR VOLUME 93 fL (80-96); MONOCYTES # (AUTO) 0.5 K/uL (0.1-1.30); NEUTROPHILS # (AUTO) 2.5 K/uL (1.8-8.9); NEUTROPHILS % (AUTO) 54.3 % (43.0-81.0); PLATELET COUNT (AUTO) 85 K/uL (150-450); RED BLOOD CELL COUNT(AUTO) 4.61 MIL/uL (4.5-6.0); RED CELL DISTRIBUTION WIDTH 13.3 % (11.5-15.0); WHITE BLOOD COUNT (AUTO) 4.6 K/uL (4.3-11.0)
[2022-12-07 08:00] VITALS: BP 129/78; TEMP 96.4; O2SAT 95
[2022-12-07 08:05] LABS: CALCIUM, SERUM 9.2 mg/dL (8.5-10.1); CREATININE 0.7 mg/dL (0.6-1.3); MAGNESIUM 2.1 mg/dL (1.8-2.4); POTASSIUM 4.5 mmol/L (3.5-5.1)
[2022-12-07] MEDS: GLUCERNA SHAKE 237 ML CAN PO SCH (08:18)
[2022-12-07] MEDS: PROSOURCE / PROSTAT (PYXIS) 30 ML UDC PO SCH ×3 (08:18→17:00)
[2022-12-07] MEDS: ALPRAZOLAM 0.5 MG TABLET PO SCH ×3 (08:33→17:12)
[2022-12-07] MEDS: FOLIC ACID 1 MG TABLET PO SCH (08:33)
[2022-12-07] MEDS: ACIDOPHILUS/BULGARICUS 1 EACH TAB.CHEW PO SCH ×3 (08:34→17:12)
[2022-12-07] MEDS: MULTIVIT W/MINERALS 1 TAB TABLET PO SCH (08:34)
[2022-12-07] MEDS: FERROUS SULFATE (325 MG) 325 MG/TAB TABLET PO SCH (08:34)
[2022-12-07] MEDS: PANTOPRAZOLE 40 MG TABLET.DR PO SCH (08:34)
[2022-12-07] MEDS: ASCORBIC ACID 500 MG TABLET PO SCH (08:34)
[2022-12-07] MEDS: SERTRALINE HCL 25 MG TABLET PO SCH (08:34)
[2022-12-07] MEDS: INSULIN REGULAR, HUMAN 100 UNIT/ML 3 ML VIAL SQ PRN ×2 (09:05→18:01)
[2022-12-07] MEDS: BACITRACIN ZINC OINT (15 GM) 15 GM TUBE TP SCH ×2 (09:34→17:00)
[2022-12-07] MEDS: MORPHINE SULFATE INJ 2 MG/ML DISP.SYRIN IV PRN ×3 (09:42→19:34)
[2022-12-07 15:17] LABS: EOSINOPHILS % (MANUAL) 1 % (0-4); LYMPHOCYTES % (MANUAL) 38 % (16-48); MONOCYTES % (MANUAL) 9 % (0-11.0); NEUTROPHILS % (MANUAL) 52 (42-76); PLATELET ESTIMATE DECREASED
[2022-12-07 20:00] VITALS: BP 156/87; TEMP 95.5; TEMP 97.5; O2SAT 92
[2022-12-07] MEDS: PREGABALIN 25 MG CAPSULE PO SCH (21:13)
[2022-12-07] MEDS: TRAZODONE 50 MG TABLET PO SCH (22:09)
[2022-12-07] MEDS: TEMAZEPAM 15 MG CAPSULE PO SCH (22:10)
[2022-12-08] MEDS: ALBUTEROL FS 2.5 MG/0.5 ML VIAL.NEB NEB SCH ×3 (01:15→13:30)
[2022-12-08] MEDS: MORPHINE SULFATE INJ 2 MG/ML DISP.SYRIN IV PRN ×2 (02:23→09:39)
[2022-12-08] MEDS: MORPHINE SULFATE SR 15 MG TABLET.SA PO SCH ×2 (05:34→13:34)
[2022-12-08] MEDS: INSULIN REGULAR, HUMAN 100 UNIT/ML 3 ML VIAL SQ PRN (06:09)
[2022-12-08] MEDS: BLOOD SUGAR DIAGNOSTIC 1 EACH STRIP IN SCH ×2 (06:24→11:36)
[2022-12-08 06:46] LABS: BASOPHILS % (AUTO) 0.9 % (0.0-2.0); EOSINOPHILS # (AUTO) 0.2 K/uL (0.0-0.7); EOSINOPHILS % (AUTO) 5.6 % (0.0-6.0); HEMATOCRIT 42 % (39-51); HEMOGLOBIN 14.4 g/dL (13.5-17.5); LYMPHOCYTES # (AUTO) 1.5 K/uL (0.8-4.8); MEAN CORPUSCULAR HEMOGLOBIN 32 PG (26.0-33.0); MEAN CORPUSCULAR HGB CONC 34 g/dl (31.0-36.0); MEAN CORPUSCULAR VOLUME 92 fL (80-96); MONOCYTES # (AUTO) 0.4 K/uL (0.1-1.30); MONOCYTES % (AUTO) 9.3 % (2.0-12.0); NEUTROPHILS # (AUTO) 2.2 K/uL (1.8-8.9); NEUTROPHILS % (AUTO) 50.2 % (43.0-81.0); PLATELET COUNT (AUTO) 85 K/uL (150-450); RED BLOOD CELL COUNT(AUTO) 4.57 MIL/uL (4.5-6.0); WHITE BLOOD COUNT (AUTO) 4.3 K/uL (4.3-11.0)
[2022-12-08 07:00] VITALS: BP 124/66; TEMP 98.4; O2SAT 94
[2022-12-08 07:03] LABS: CALCIUM, SERUM 9.2 mg/dL (8.5-10.1); CARBON DIOXIDE 30 mmol/L (21-32); CHLORIDE 97 mmol/L (98-107); CREATININE 0.6 mg/dL (0.6-1.3); GLUCOSE 273 mg/dL (74-106); POTASSIUM 4.6 mmol/L (3.5-5.1); SODIUM SERUM 132 mmol/L (136-145); UREA NITROGEN, BLOOD 16 mg/dL (7-18)
[2022-12-08] MEDS: BUDESONIDE RESPULE INH 0.5 MG/2 ML AMPUL.NEB NEB SCH (07:30)
[2022-12-08] MEDS: HYDROCODONE/APAP 10/325MG TABLET PO PRN (07:48)
[2022-12-08] MEDS: PROSOURCE / PROSTAT (PYXIS) 30 ML UDC PO SCH ×2 (08:00→11:36)
[2022-12-08] MEDS: GLUCERNA SHAKE 237 ML CAN PO SCH (08:10)
[2022-12-08] MEDS: ACIDOPHILUS/BULGARICUS 1 EACH TAB.CHEW PO SCH (08:38)
[2022-12-08] MEDS: PANTOPRAZOLE 40 MG TABLET.DR PO SCH (08:38)
[2022-12-08] MEDS: ASCORBIC ACID 500 MG TABLET PO SCH (08:38)
[2022-12-08] MEDS: MULTIVIT W/MINERALS 1 TAB TABLET PO SCH (08:38)
[2022-12-08] MEDS: FERROUS SULFATE (325 MG) 325 MG/TAB TABLET PO SCH (08:38)
[2022-12-08] MEDS: FOLIC ACID 1 MG TABLET PO SCH (08:38)
[2022-12-08] MEDS: ALPRAZOLAM 0.5 MG TABLET PO SCH (08:38)
[2022-12-08] MEDS: SERTRALINE HCL 25 MG TABLET PO SCH (08:41)
[2022-12-08] MEDS: IV NS 0.9% 1,000 ML IV PRN (08:41)
[2022-12-08] MEDS: BACITRACIN ZINC OINT (15 GM) 15 GM TUBE TP SCH (08:42)
[2022-12-08] MEDS ORDERED: COLLAGENASE 30 GM TUBE TP SCH (09:00)
[2022-12-08] MEDS ORDERED: INSU100V7 SQ (11:58)
[2022-12-08] MEDS ORDERED: MAGN400O6 PO (11:58)
[2022-12-08 13:31] LABS: PLATELET ESTIMATE DECREASED
== END 2022-12-08 15:25 | disposition home health service (06) | DRG 605 ==
LOC: ER 11:45 → MED 16:31
PROVIDERS: ADMIT Nurse Practitioner Acute Care; ATTEND Legal Medicine
PROC: 0J9R3ZZ Drainage of Left Foot Subcutaneous Tissue and Fascia, Percutaneous Approach (ICD-10-PCS; principal; 2022-12-07)
DX: S91.002A Unspecified open wound, left ankle, initial encounter (principal); L97.428 Non-pressure chronic ulcer of left heel and midfoot with other specified severity; E11.40 Type 2 diabetes mellitus with diabetic neuropathy, unspecified; J44.9 Chronic obstructive pulmonary disease, unspecified; I10 Essential (primary) hypertension; D63.8 Anemia in other chronic diseases classified elsewhere; E78.5 Hyperlipidemia, unspecified; G89.4 Chronic pain syndrome; Z88.0 Allergy status to penicillin; Z96.642 Presence of left artificial hip joint; Z71.6 Tobacco abuse counseling; F17.210 Nicotine dependence, cigarettes, uncomplicated; L89.626 Pressure-induced deep tissue damage of left heel; S90.32XA Contusion of left foot, initial encounter; X58.XXXA Exposure to other specified factors, initial encounter; Y93.9 Activity, unspecified; Y92.89 Other specified places as the place of occurrence of the external cause; T84.093S Other mechanical complication of internal left knee prosthesis, sequela; Y79.2 Prosthetic and other implants, materials and accessory orthopedic devices associated with adverse incidents; Y83.8 Other surgical procedures as the cause of abnormal reaction of the patient, or of later complication, without mention of misadventure at the time of the procedure
CPT/HCPCS: 36415; 71045-TC; 73502; 73564-TC; 73610-TC; 73700-TC; 80048-TC; 80076-TC; 80202-TC; 82962-TC; 83735-TC; 85025-TC; 85652-TC; 85730-TC; 86140-TC; 87040-TC; 87081-TC; 97110-TC; 97530-TC; A4223; A6253; A6403; G0378; J1170; J1815; J2185; J2270; J3370; J7030; J7050; J7060